=== PATIENT | male | born 1970 | race Asian ===

== ENCOUNTER 2021-04-10 09:11 | Outpatient (REF) | payer OTHER, SELFPAY | END 2021-04-10 09:12 | disposition home or self-care (01) | LOC: HO.LAB 09:11 | PROVIDERS: Visit Provider Internal Medicine | DX: Z20.822 Contact with and (suspected) exposure to COVID-19 (principal) | CPT/HCPCS: C9803; U0003; U0005 ==

== ENCOUNTER 2024-09-03 15:15 | Outpatient (AMB) | payer OTHER, SELFPAY ==
[2024-09-03 15:29] VITALS: BP 144/94; BMI 24.8
--- NOTE | 2024-09-03 15:29 | A.OFFVIS_ITS ---
Vital Signs 09/03/24 15:29 Height 5 ft 11 in Weight 178 lb BMI 24.8 BP 144/94 H Blood Pressure Location Rt brachial Position Sitting Intake Visit Reasons: ENP: MS(PER MD) Intake Note: Patient presents for new patient evaluation Allergies Sulfa (Sulfonamide Antibiotics) Allergy (Severe, Verified 09/03/24 15:31) Rash Medication List - Last Reconciled 09/03/24 by Nuria Marie MD baclofen 30 mg PO TID duloxetine 30 mg PO DAILY gabapentin 300-300-600 orally daily; ocrelizumab (Ocrevus) 600 mg IV [id number] trazodone 100 mg PO BEDTIME PRN HPI Comments Details: 54y/o male with Multiple Sclerosis , RAZA on CPAP comes for urgent reevaluation Diagnosed in 2018- [facility] center In December 2020 when he had his COVID vaccine booster- he reacted and had [facility] [place] . He was admitted and treated with IVIG. He was fine until February 2024 he started noticing difficulty with his gait and sharp shooting pains in megan thighs R>L . He also has cramps and spasms in his legs when he sleeps .The pain and abnormal cramps are worse at rest and when he is sleeping . Moving makes it better. he is still able to workout but after that he is stiff . In March 2024 - he had appointment for Botox for Migraines at [facility]. 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 MRI brain C spine and lumbar spine.He also has pain in the neck and shoulder.No MS changes. He had EMG /NCS LE twice. He was switched to ocrevus for past 1 year from [facility]. 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 Optic neuritis RAZA (obstructive sleep apnea) Neck pain Multiple sclerosis Hyperglycemia GERD (gastroesophageal reflux disease) Disorder of lumbar spine Cervical radiculopathy Surgical History H/O hernia repair Family History Mother Type 2 diabetes mellitus Father HTN (hypertension) Stroke Social History Alcohol intake: current Patient Tobacco Use Status: Current someday Tobacco user Physical Exam Vital Signs: Last Vital Signs BP 144/94 H 09/03/24 15:29 BMI result Body Mass Index 24.8 Const Orientation/consciousness: patient oriented x3 Neuro Other: Motor - power right hand 5-/5 Left hand 5/5 LE- right thigh 3-4/5 limited because of pain Left 4-5/5 Right leg extension 4/5 Left leg extension - 4/5 Gait- guarded without shoes General: patient oriented x3 Deep tendon reflexes (DTR's): Right triceps reflex intensity grade: 2+, Left triceps reflex intensity grade: 2+, Rt Biceps (C5, C6): 2+, Left biceps reflex intensity grade: 2+, Right brachioradialis reflex intensity grade: 2+, Left brachioradialis reflex intensity grade: 2+, Right patellar reflex intensity grade: 3+, Left patellar reflex intensity grade: 3+, Right ankle reflex intensity grade: 3+ and Left ankle reflex intensity grade: 3+ Coordination: [id number] test normal Results Reviewed Results Reviewed: EMG/NCS- 08/2024 normal MRI L spine 2023- multilevel lumbar spondylosis moderate megan foraminal stenosis at L5-S1 Unchanged nonenhancing T 2 hypertense lesion in the right conus medularis Assessment & Plan Assessment & Plan (1) Nocturnal leg cramps: Comment: h/o GBS post COVID vaccine in 2020 Code(s): G47.62 - Sleep related leg cramps Category: Medical (2) Restless legs syndrome (RLS): Code(s): G25.81 - Restless legs syndrome Category: Medical (3) Lumbar spondylosis: Code(s): M47.816 - Spondylosis without myelopathy or radiculopathy, lumbar region Category: Medical (4) Multiple sclerosis: Code(s): G35 - Multiple sclerosis Category: Medical (5) RAZA (obstructive sleep apnea): Code(s): G47.33 - Obstructive sleep apnea (adult) (pediatric) Category: Medical Plan EMG report from [place] I will trial him on clonazepam 0.5 mg 1-2 tabs qhs Second opinion with [facility] Dr. Suarez Decrease trazadone 50mg qhs In lab sleep study to evaluate his leg cramps F/u physical laboratory assistant for lumbar spondylosis Orders: Orders RT PSG in-lab sleep study 09/03/24 G25.81 - Restless legs syndrome, G47.33 - Obstructive sleep apnea (adult) (pediatric), G47.62 - Sleep related leg cramps Referrals Neurology Referral G35 - Multiple sclerosis Medications: New trazodone 50 mg PO BEDTIME PRN clonazepam 1-2 tabs orally daily; 60 tabs 1RF Coding Level of Care Code New Pt Level 4 (99143) Diagnoses Nocturnal leg cramps G47.62 Restless legs syndrome (RLS) G25.81 Lumbar spondylosis M47.816 Multiple sclerosis G35 RAZA (obstructive sleep apnea) G47.33
== END 2024-09-03 16:22 | disposition home or self-care (01) ==
PROVIDERS: Visit Provider Psychiatry & Neurology Neurology
DX: G47.62 Sleep related leg cramps (principal); G25.81 Restless legs syndrome; M47.816 Spondylosis without myelopathy or radiculopathy, lumbar region; G35 Multiple sclerosis; G47.33 Obstructive sleep apnea (adult) (pediatric)
CPT/HCPCS: 99204

== ENCOUNTER → 2024-09-21 19:37 | Outpatient (REF) | payer OTHER, SELFPAY | LOC: HO.SL 19:37 | PROVIDERS: Visit Provider Psychiatry & Neurology Neurology | DX: G47.33 Obstructive sleep apnea (adult) (pediatric) (principal); G25.81 Restless legs syndrome; G47.62 Sleep related leg cramps | CPT/HCPCS: 95810 ==

== ENCOUNTER → 2024-09-21 21:58 | Outpatient (BNV) | payer OTHER, SELFPAY | PROVIDERS: Visit Provider Internal Medicine | DX: G47.33 Obstructive sleep apnea (adult) (pediatric) (principal) | CPT/HCPCS: 95810 ==

== ENCOUNTER 2024-11-21 07:53 | Outpatient (AMB) | payer OTHER, SELFPAY ==
[2024-11-21 07:54] VITALS: BP 122/84; PULSE 78; O2SAT 99; BMI 25.2
--- NOTE | 2024-11-21 07:54 | A.OFFVIS_ITS ---
Vital Signs 11/21/24 07:54 Height 5 ft 11 in Weight 181 lb BMI 25.2 BP 122/84 Blood Pressure Location Rt brachial Position Sitting Pulse 78 Pulse Source Pulse Oximeter Pulse Oximetry (%) 99 Oxygen Delivery Method Room Air Intake Visit Reasons: sleep study results discussion Intake Note: Patient following up for sleep study done on 10/01/2024. Allergies Sulfa (Sulfonamide Antibiotics) Allergy (Severe, Verified 11/21/24 07:56) Rash Medication List - Last Reconciled 11/21/24 by Nuria Marie MD clonazepam 1-2 tabs orally daily; duloxetine 30 mg PO DAILY ocrelizumab (Ocrevus) 600 mg IV [id number] trazodone 50 mg PO BEDTIME PRN HPI Comments Details: 54y/o male with Multiple Sclerosis , RAZA on CPAP comes for follow up. His sleep study was c/w severe sleep apnea AHI 43/hr , 69/hr O2 ranjith 69%. Clonazepam helps his sleep. He still has his old CPAP from 2018 very uncomfortable with mask but tries to use it everyday except when travelling. He went to [place] and went to an Ayurvedic center - oil massage , herbal massages and has helped. His pain and stiffness has decreased He was seen at [facility] center and is starting on Ocrevus .He also stopped baclofen and is doing ok History from last visit- Diagnosed in 2017- [facility] In December 2020 when he had his COVID vaccine booster- he reacted and had Gullian Trona . He was admitted and treated with IVIG. He was fine until February 2024 he started noticing difficulty with his gait and sharp shooting pains in megan thighs R>L . He also has cramps and spasms in his legs when he sleeps .The pain and abnormal cramps are worse at rest and when he is sleeping . Moving makes it better. he is still able to workout but after that he is stiff . In March 2024 - he had appointment for Botox for Migraines at [facility]. 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 MRI brain C spine and lumbar spine.He also has pain in the neck and shoulder.No MS changes. He had EMG /NCS LE twice. He was switched to ocrevus for past 1 year from tecfed[place]. 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 Optic neuritis RAZA (obstructive sleep apnea) Neck pain Multiple sclerosis Hyperglycemia GERD (gastroesophageal reflux disease) Disorder of lumbar spine Cervical radiculopathy Surgical History H/O hernia repair Family History Mother Type 2 diabetes mellitus Father HTN (hypertension) Stroke Social History Alcohol intake: current Patient Tobacco Use Status: Current someday Tobacco user Physical Exam Vital Signs: Last Vital Signs Pulse 78 11/21/24 07:54 BP 122/84 11/21/24 07:54 Pulse Ox 99 11/21/24 07:54 Oxygen Delivery Method Room Air 11/21/24 07:54 BMI result Body Mass Index 25.2 Const Orientation/consciousness: patient oriented x3 Neuro Other: Motor - power right hand 5-/5 Left hand 5/5 LE- right thigh 3-4/5 limited because of pain Left 4-5/5 Right leg extension 4/5 Left leg extension - 4/5 Gait- guarded without shoes General: patient oriented x3 Deep tendon reflexes (DTR's): Right triceps reflex intensity grade: 2+, Left triceps reflex intensity grade: 2+, Rt Biceps (C5, C6): 2+, Left biceps reflex intensity grade: 2+, Right brachioradialis reflex intensity grade: 2+, Left brachioradialis reflex intensity grade: 2+, Right patellar reflex intensity grade: 3+, Left patellar reflex intensity grade: 3+, Right ankle reflex intensity grade: 3+ and Left ankle reflex intensity grade: 3+ Coordination: [id number] test normal Assessment & Plan Assessment & Plan (1) RAZA (obstructive sleep apnea): Code(s): G47.33 - Obstructive sleep apnea (adult) (pediatric) Category: Medical (2) Nocturnal leg cramps: Comment: h/o GBS post COVID vaccine in 2020 Code(s): G47.62 - Sleep related leg cramps Category: Medical (3) Restless legs syndrome (RLS): Code(s): G25.81 - Restless legs syndrome Category: Medical (4) Lumbar spondylosis: Code(s): M47.816 - Spondylosis without myelopathy or radiculopathy, lumbar region Category: Medical (5) Multiple sclerosis: Code(s): G35 - Multiple sclerosis Category: Medical Plan clonazepam 0.5 mg 1-2 tabs qhs Continue f/u with Dr. Suarez Trial trazadone 50mg qhs In lab sleep study - reevaluated F/u street cleaner for lumbar spondylosis Will consider INSPIRE Coding Level of Care Code Est Pt Level 4 (90560) Complex EM visit Add On G2211 Diagnoses RAZA (obstructive sleep apnea) G47.33 Nocturnal leg cramps G47.62 Restless legs syndrome (RLS) G25.81 Lumbar spondylosis M47.816 Multiple sclerosis G35
--- OUTSIDE RECORDS SUMMARY | 2024-11-21 07:55 | XMS_ITS | Clinical Summary ---
Author Organization [facility] Address [address] [place] [address] Phone Care Team Providers Care Log Processor Operator Name Role Phone Samina Luna MD Primary Care Provide r Allergies No known active allergies Medications gabapentin (NEURONTIN) 300 mg capsule Take 1 capsule (300 mg total) by mouth 3 (three) times a day. Active baclofen (LIORESAL) 10 mg tablet Take 3 tablets (30 mg total) by mouth 3 (three) times a day. Active traZODone (DESYREL) 100 mg tablet Take 1 tablet (100 mg total) by mouth at bedtime. Active DULoxetine (CYMBALTA) [address] capsule Take 1 capsule (30 mg total) by mouth 1 (one) time each day. Do not crush or chew. Active clonazePAM (KlonoPIN) 0.5 mg tablet Take 1-2 tablets (0.5-1 mg total) by mouth daily. 09/03/2024 Active ocrelizumab (OCREVUS IV) Infuse into a venous catheter. Active Encounters Date Type Department Care Team Description 09/21/2024 2:00 PM EST Consult [facility] for [facility] [address] [place] [phone] Maria Esther Ruby MD Multiple sclerosis (CMS/HCC) (Primary Dx); Neuropathy; Other fatigue; Chronic migraine without aura without status migrainosus, not intractable 09/18/2024 9:35 AM EST - 09/18/2024 11:59 PM EST Hospital Encounter [facility] Xray [address] [place] [phone] Pain in left hip Discharge Disposition: Home or Self Care 08/21/2024 12:51 PM EST Anesthesia Event [facility] Pain Management [address] [place] [phone] Leroy Alvarenga MD Walsh, Michael, DO 08/21/2024 10:17 AM EST - 08/21/2024 11:59 PM EST Hospital Encounter [facility] Pain Management [address] [place] [phone] Harris Foster DO Radiculopathy, cervical region Discharge Disposition: Home or Self Care 08/21/2024 7:15 AM EST - 08/21/2024 11:59 PM EST Hospital Encounter [facility] Xray [address] [place] [phone] Pain Discharge Disposition: Home or Self Care from Last 3 Months Surgical History Surgery Date Site/Laterality Comments ANTERIOR CERVICAL DISCECTOMY W/ FUSION Medical History Medical History Date Comments Sleep apnea Neuromuscular disorder ([facility]/HCC) MS (multiple sclerosis) ([facility]) Social History Tobacco Use Types Packs/Day Years Used Date Smoking Tobacco: Never Smokeless Tobacco: Never Tobacco Cessation:Counseling Given: Not Answered Alcohol Use Standard Drinks/Week Comments Not Currently 0 (1 standard drink = 0.6 oz pur e alcohol) Sex and Gender Information Value Date Recorded Sex Assigned at Male 08/19/2024 6:33 PM EST Legal Sex Male 11:12 PM EST Gender Identity Male 08/19/2024 6:33 PM EST Sexual Orientation Straight 08/21/2024 10 :15 AM EST Travel History Travel Start Travel End [place]ck[place] 10/04/2024 11/09/2024 Obstetrics History Last Filed Vital Signs Vital Sign Reading Time Taken Comments Blood Pressure 142/90 09/21/2024 2:09 PM EST Pulse 95 09/21/2024 2:09 PM EST Temperature 36.5 ??C (97.7 ??F) 09/21/2024 2:09 PM ES T Respiratory Rate 16 08/21/2024 1:27 PM EST Oxygen Saturation 97% 09/21/2024 2:09 PM EST Inhaled Oxygen Concentration - - Weight 74.8 kg (165 lb) 08/21/2024 10:44 AM EST Height 177.8 cm (5' 10 ) 08/21/2024 10:44 AM EST Body Mass Index 23.68 08/21/2024 10:44 AM EST Plan of Treatment Upcoming Encounters Date Type Department Care Team (Late st Contact Info) Description 11/21/2024 9:20 AM EST Procedure visit [facility] [address] [place] [phone] Maria Esther Ruby MD [address] [phone] 11/23/2024 8:30 AM EST Office Visit [facility] [address] [place] [address] Maria Esther Ruby MD [address] [phone] Health Maintenance Due Date Last Done Comments Hepatitis B Vaccines (1 of 3 - 19+ 3-dose series) 02/04/1988 Pneumococcal Vaccine: 50+ Years (1 of 1 - PCV) 2019 Zoster Vaccines (1 of 2) 2019 COVID-19 Vaccine (3 - season) 2024 12/01/2020, 10/30/2020 Influenza Vaccine (#1) 2024 2, 06/24/2020, 06/24/2020, Additional history exists Cholesterol Screening (Lipid Panel) 08/16/2024 Colorectal Cancer Screening: Colonoscopy 08/16/2024 Depression Screening 08/16/2024 Social Influencers of Health Screening 08/16/2024 DTaP,Tdap,and Td Vaccines (3 - Td or Tdap) 04/30/2031 04/30/2021, 05/14/2011 HIV Screening Completed 09/21/2024 Hepatitis C Screening Completed 09/21/2024, 021 HIB Vaccines Aged Out No longer eligi ble based on patient's age to complete this topic HPV Vaccines Aged Out No longer eligi ble based on patient's age to complete this topic Hepatitis A Vaccines Aged Out No long er eligible based on patient's age to complete this topic IPV Vaccines Aged Out No longer eligi ble based on patient's age to complete this topic MMR Vaccines Aged Out No longer eligi ble based on patient's age to complete this topic Meningococcal ACWY Vaccine Aged Out N o longer eligible based on patient's age to complete this topic Meningococcal B Vacine Aged Out No lo nger eligible based on patient's age to complete this topic Pneumococcal Vaccine: Pediatrics (0 to 5 Years) and At-Risk Patients (6 to 64 Years) Aged Out No longer eligible based on patient's age to complete this topic RSV Immunization Patients Under 20 months Aged Out No longer eligible based on patient's age to complete this topic Varicella Vaccines Aged Out No longer eligible based on patient's age to complete this topic Procedures Procedure Name Priority Date/Time Associated Diagnosis Comments NEUROMYELITIS OPTICA, [id number] Routine 09/22/2024 10:51 AM EST Multiple sclerosis (CMS/HCC) [place] PROTEIN ELECTROPHORETIC FRACTIONATION & QUANTITATION SERUM Routine 09/21/2024 3:54 PM EST Multiple sclerosis (CMS/HCC) Neuropathy PROTEIN, TOTAL Routine 09/21/2024 3:54 PM EST Multiple sclerosis (CMS/HCC) Neuropathy INTERFERON GAMMA INTERPRETATION Routine 09/21/2024 3:54 PM EST Multiple sclerosis (CMS/HCC) INTERFERON GAMMA ANTIGEN 2 Routine 09/21/2024 3:54 PM EST Multiple sclerosis (CMS/HCC) INTERFERON GAMMA ANTIGEN 1 Routine 09/21/2024 3:54 PM EST Multiple sclerosis (CMS/HCC) INTERFERON GAMMA MITOGEN Routine 09/21/2024 3:54 PM EST Multiple sclerosis (CMS/HCC) INTERFERON GAMMA NIL Routine 09/21/2024 3:54 PM EST Multiple sclerosis (CMS/HCC) CBC WITH AUTO DIFFERENTIAL Routine 09/21/2024 3:54 PM EST Multiple sclerosis (CMS/HCC) THYROID STIMULATING HORMONE Routine 09/21/2024 3:54 PM EST Multiple sclerosis (CMS/HCC) Neuropathy Other fatigue VITAMIN E Routine 09/21/2024 3:54 PM EST Multiple sclerosis (CMS/HCC) Neuropathy VITAMIN B6 Routine 09/21/2024 3:54 PM EST Multiple sclerosis (CMS/HCC) Neuropathy TISSUE TRANSGLUTAMINASE, IGA Routine 09/21/2024 3:54 PM EST Multiple sclerosis (CMS/HCC) Neuropathy VITAMIN B1 Routine 09/21/2024 3:54 PM EST Multiple sclerosis (CMS/HCC) Neuropathy PROTEIN ELECTROPHORESIS, SERUM Routine 09/21/2024 3:54 PM EST Multiple sclerosis (CMS/HCC) Neuropathy HEMOGLOBIN A1C Routine 09/21/2024 3:54 PM EST Multiple sclerosis (CMS/HCC) Neuropathy RHEUMATOID FACTOR Routine 09/21/2024 3:5 4 PM EST Multiple sclerosis (CMS/HCC) SJOGRENS ANTIBODIES, SSA AND SSB Routine 09/21/2024 3:54 PM EST Multiple sclerosis (CMS/HCC) BHUMIKA IFA WITH TITER AND PATTERN Routine 09/21/2024 3:54 PM EST Multiple sclerosis (CMS/HCC) VARICELLA ZOSTER ANTIBODY IGG Routine 09/21/2024 3:54 PM EST Multiple sclerosis (CMS/HCC) MYELIN OLIGODENDROCYTE GLYCOPROTEIN ANTIBODY WITH REFLEX TO TITER Routine 09/21/2024 3:54 PM EST Multiple sclerosis (CMS/HCC) INTERFERON GAMMA FOR TB, QUALITATIVE Routine 09/21/2024 3:54 PM EST Multiple sclerosis (CMS/HCC) HIV 1, 2 ANTIBODY, P24 ANTIGEN WITH REFLEX TO DIFFERENTIATION Routine 09/21/2024 3:54 PM EST Multiple sclerosis (CMS/HCC) HEPATITIS B CORE ANTIBODY IGM Routine 09/21/2024 3:54 PM EST Multiple sclerosis (CMS/HCC) HEPATITIS B SURFACE ANTIGEN WITH CONFIRMATION Routine 09/21/2024 3:54 PM EST Multiple sclerosis (CMS/HCC) HEPATITIS C ANTIBODY Routine 09/21/2024 3:54 PM EST Multiple sclerosis (CMS/HCC) BORRELIA BURGDORFERI ANTIBODY Routine 09/21/2024 3:54 PM EST Multiple sclerosis (CMS/HCC) CBC AND DIFFERENTIAL Routine 09/21/2024 3:54 PM EST Multiple sclerosis (CMS/HCC) VITAMIN D 25 HYDROXY Routine 09/21/2024 3:54 PM EST Multiple sclerosis (CMS/HCC) VITAMIN B12 Routine 09/21/2024 3:54 PM EST Multiple sclerosis (CMS/HCC) XR HIP 2-3 VIEWS LEFT Routine 09/18/2024 9:56 AM EST Pain in left hip from Last 3 Months Results * Neuromyelitis optica, [id number] (09/22/2024 10:51 AM EST) NMO IgG Autoantibodies <1.5 0.0 - 3.0 U/mL 09/24/2024 4:05 PM EST [facility] Comment: ? Negative: ?0.0 - 3.0 ? Positive: ? >3.0 Blood Venous blood specimen / Unknown Venipuncture / Unknown 09/22/2024 10:51 AM EST 09/22/2024 10:52 AM EST Narrative [facility] - 09/24/2024 4:05 PM EST Performed at: ??01 - [facility] [address] ??[id number] Furnace Hand: Chris Estrada MD, Phone: ??[phone] Maria Esther Ruby MD LAB BLOOD ORDERABLES Fin al Result [facility] * Hepatitis C antibody (09/21/2024 3:54 PM EST) Hepatitis C Antibody Negative Negative LAB CHEMISTRY METHOD 09/21/2024 8:05 PM EST [facility] Blood Venous blood specimen / Unknown Venipuncture / Unknown 09/21/2024 3:54 PM EST 09/21/2024 3:54 PM EST Maria Esther Ruby MD LAB BLOOD ORDERABLES Fin al Result Performing Organization Address City/[facility] Co de Phone Number [facility] [address] [place] [address], [place] [phone] * HIV 1,2 antibody, p24 antigen with reflex to differentiation (09/21/2024 3:54 PM EST) Pathologist [facility] HIV Combo AB/AG Negative Negative LAB CHEMISTRY METHOD 09/21/2024 8:06 PM EST [facility] Blood Venous blood specimen / Unknown Venipuncture / Unknown 09/21/2024 3:54 PM EST 09/21/2024 3:54 PM EST Narrative [facility] - 09/21/2024 8:06 PM EST This assay is a 4th generation assay allowing for earlier detection of HIV infection by detecting the presence of the HIV-1 p24 antigen as well as the traditional antibodies to HIV type 1 (including group O) and type 2. ??Use of a 4th generation assay is the current CDC recommendation for HIV screening. us Maria Esther Ruby MD LAB BLOOD ORDERABLES Fin al Result Performing Organization Address City/[facility]/ZIP Co de Phone Number [facility] [address] [place] [address], [place] [phone] * Interferon gamma interpretation (09/21/2024 3:54 PM EST) [facility] Quantiferon Plus Interpretation Negative Negative LAB CHEMISTRY METHOD 09/23/2024 10:34 AM EST [facility] Blood Venous blood specimen / Unknown Venipuncture / Unknown 09/21/2024 3:54 PM EST 09/21/2024 3:54 PM EST us Maria Esther Ruby MD LAB BLOOD ORDERABLES Fin al Result Performing Organization Address [facility] Co de Phone Number [facility] [address] [place] [address], [place] [phone] * Interferon gamma antigen 2 (09/21/2024 3:54 PM EST) Blood Venous blood specimen / Unknown Venipuncture / Unknown 09/21/2024 3:54 PM EST 09/21/2024 3:54 PM EST us Maria Esther Ruby MD LAB BLOOD ORDERABLES Fin al Result Performing Organization Address City/[facility]/ZIP Co de Phone Number [facility] [address] [place] [address], [place] [phone] * Inteferon gamma antigen 1 (09/21/2024 3:54 PM EST) Blood Venous blood specimen / Unknown Venipuncture / Unknown 09/21/2024 3:54 PM EST 09/21/2024 3:54 PM EST us Maria Esther Ruby MD LAB BLOOD ORDERABLES Fin al Result Performing Organization Address City/[facility]/ZIP Co de Phone Number [facility] [address] [place] [address], [place] [phone] * Interferon gamma mitogen (09/21/2024 3:54 PM EST) Blood Venous blood specimen / Unknown Venipuncture / Unknown 09/21/2024 3:54 PM EST 09/21/2024 3:54 PM EST us Maria Esther Ruby MD LAB BLOOD ORDERABLES Fin al Result Performing Organization Address [facility] de Phone Number [facility] [address] [place] [address], [place] [phone] * Interferon gamma NIL (09/21/2024 3:54 PM EST) Blood Venous blood specimen / Unknown Venipuncture / Unknown 09/21/2024 3:54 PM EST 09/21/2024 3:54 PM EST us Maria Esther Ruby MD LAB BLOOD ORDERABLES Fin al Result Performing Organization Address [facility] Phone Number [facility] [address] [place] [address], [place] [phone] * Hepatitis B surface antigen with reflex to confirmation (09/21/2024 3:54 PM EST) Pathologist [facility] Hepatitis B Surface Ag Negative Negative LAB CHEMISTRY METHOD 09/21/2024 7:37 PM EST [facility] Blood Venous blood specimen / Unknown Venipuncture / Unknown 09/21/2024 3:54 PM EST 09/21/2024 3:54 PM EST Narrative [facility] - 09/21/2024 7:37 PM EST Over the counter supplements containing high doses of biotin may interfere with this assay. ??If interference is suspected, patients shoud be retested after refraining from biotin supplements for 72 hours. us Maria Esther Ruby MD LAB BLOOD ORDERABLES Fin al Result Performing Organization Address [facility] de Phone Number [facility] [address] [place] [address], [place] [phone] * PATHOLOGIST REVIEW PROTEIN ELECTROPHORESIS (09/21/2024 3:54 PM EST) [facility] Pathologist Interpretation 09/25/2024 2:05 PM EST [facility] Blood Venous blood specimen / Unknown Venipuncture / Unknown 09/21/2024 3:54 PM EST 09/21/2024 3:54 PM EST Maria Esther Ruby MD LAB BLOOD ORDERABLES Fin al Result Performing Organization Address [facility]/ZIP Co de Phone Number [facility] [address] [place] [address], [place] [phone] * Myelin oligodendrocyte glycoprotein antibody with reflex to titer (09/21/2024 3:54 PM EST) [facility] MOG Antibody, Cell-based IFA Negative Negative 09/25/2024 1:05 PM EST [facility] Blood Venous blood specimen / Unknown Venipuncture / Unknown 09/21/2024 3:54 PM EST 09/21/2024 3:54 PM EST Narrative [facility] - 09/25/2024 1:05 PM EST Test(s) [id number] Antibody, Cell-based IFA was developed and its performance characteristics determined by [facility]. It has not been cleared or approved by the Food and Drug Administration. Performed at: ??01 - [facility] ??[id number] Furnace Hand: Chris Estrada MD, Phone: ??[phone] us Maria Esther Ruby MD LAB BLOOD ORDERABLES Fin al Result [facility] * Sjogrens antibodies, SSA and SSB (09/21/2024 3:54 PM EST) [facility] Sjogren's SS-A (Ro) Ab Quant 1 <20 units LAB CHEMISTRY METHOD 09/23/2024 10:42 AM EST [facility] Sjogren's SS-A (Ro) Ab Negative Negative LAB CHEMISTRY METHOD 09/23/2024 10:42 AM EST [facility] Sjogren's SS-B (La) Ab Quant 1 <20 units LAB CHEMISTRY METHOD 09/23/2024 10:42 AM EST [facility] Sjogren's SS-B (La) Ab Negative Negative LAB CHEMISTRY METHOD 09/23/2024 10:42 AM EST [facility] Blood Venous blood specimen / Unknown Venipuncture / Unknown 09/21/2024 3:54 PM EST 09/21/2024 3:54 PM EST us Maria Esther Ruby MD LAB BLOOD ORDERABLES Fin al Result [facility] [address] [place] [address], [place] [phone] * BHUMIKA IFA with titer and pattern (09/21/2024 3:54 PM EST) [facility] BHUMIKA Negative Negative 09/24/2024 1:39 PM EST [facility] Blood Venous blood specimen / Unknown Venipuncture / Unknown 09/21/2024 3:54 PM EST 09/21/2024 3:54 PM EST us Maria Esther Ruby MD LAB BLOOD ORDERABLES Fin al Result [facility] [address] [place] [address], [place] [phone] * (ABNORMAL) CBC auto differential (09/21/2024 3:54 PM EST) [facility] WBC 9.9 4.8 - 10.8 K/mcL LAB HEMETOLOGY METHOD 09/21/2024 6:37 PM [facility] RBC 5.70(H) 4.50 - 5.50 M/mcL LAB HEMETOLOGY METHOD 09/21/2024 6:37 PM [facility] Hemoglobin 16.7 13.5 - 17.5 g/dL LAB HEMETOLOGY METHOD 09/21/2024 6:37 PM [facility] Hematocrit 50.4 42.0 - 54.0 % LAB HEMETOLOGY METHOD 09/21/2024 6:37 PM [facility] MCV 88.3 79.0 - 98.0 FL LAB HEMETOLOGY METHOD 09/21/2024 6:37 PM [facility] MCH 29.2 27.0 - 32.0 pcg LAB HEMETOLOGY METHOD 09/21/2024 6:37 PM [facility] MCHC 33.1 32.0 - 37.0 g/dL LAB HEMETOLOGY METHOD 09/21/2024 6:37 PM [facility] RDW 13.2 11.0 - 15.0 % LAB HEMETOLOGY METHOD 09/21/2024 6:37 PM [facility] Platelets 265 130 - 400 K/mcL LAB HEMETOLOGY METHOD 09/21/2024 6:37 PM [facility] MPV 11.4(H) 7.0 - 11.0 FL LAB HEMETOLOGY METHOD 09/21/2024 6:37 PM [facility] NRBC 0.0 <1.0 % LAB HEMETOLOGY METHOD 09/21/2024 6:37 PM [facility] NRBC Absolute 0.00 <0.10 K/mcL LAB HEMETOLOGY METHOD 09/21/2024 6:37 PM [facility] Neutrophils Relative 48.7 % LAB HEMETOLOGY METHOD 09/21/2024 6:37 PM [facility] Lymphocytes Relative 35.1 % LAB HEMETOLOGY METHOD 09/21/2024 6:37 PM [facility] Monocytes Relative 10.3 % LAB HEMETOLOGY METHOD 09/21/2024 6:37 PM [facility] Eosinophils Relative 1.0 % LAB HEMETOLOGY METHOD 09/21/2024 6:37 PM [facility] Basophils Relative 1.8 % LAB HEMETOLOGY METHOD 09/21/2024 6:37 PM [facility] Immature Granulocytes Relative 3.1 % LAB HEMETOLOGY METHOD 09/21/2024 6:37 PM [facility] Neutrophils Absolute 4.79 1.50 - 7.00 K/mcL LAB HEMETOLOGY METHOD 09/21/2024 6:37 PM [facility] Lymphocytes Absolute 3.46 1.00 - 5.00 K/mcL LAB HEMETOLOGY METHOD 09/21/2024 6:37 PM [facility] Monocytes Absolute 1.02(H) 0.20 - 1.00 K/mcL LAB HEMETOLOGY METHOD 09/21/2024 6:37 PM [facility] Eosinophils Absolute 0.10 0.00 - 0.50 K/mcL LAB HEMETOLOGY METHOD 09/21/2024 6:37 PM [facility] Basophils Absolute 0.18 0.00 - 0.20 K/mcL LAB HEMETOLOGY METHOD 09/21/2024 6:37 PM [facility] Immature Granulocytes Absolute 0.31(H) 0.00 - 0.03 K/mcL LAB HEMETOLOGY METHOD 09/21/2024 6:37 PM [facility] Blood Venous blood specimen / Unknown Venipuncture / Unknown 09/21/2024 3:54 PM EST 09/21/2024 3:54 PM EST us Maria Esther Ruby MD LAB BLOOD ORDERABLES Fin al Result Performing Organization Address City/[facility] de Phone Number [facility] [address] [place] [address], [place] [phone] * Borrelia burgdorferi antibody (09/21/2024 3:54 PM EST) Lyme Ab Negative Negative LAB CHEMISTRY METHOD 09/22/2024 11:18 AM EST [facility] Comment: No laboratory evidence of infection with B. burgdorferi (Lyme disease). Negative results may occur in patients recently infected (<=14 days) with B. burgdorferi. ??If recent infection is suspected, repeat testing on a new sample collected in 7-14 days is recommended. Blood Venous blood specimen / Unknown Venipuncture / Unknown 09/21/2024 3:54 PM EST 09/21/2024 3:54 PM EST us Maria Esther Ruby MD LAB BLOOD ORDERABLES Fin al Result Performing Organization Address [facility] de Phone Number [facility] [address] [place] [address], [place] [phone] * Tissue transglutaminase, IgA (09/21/2024 3:54 PM EST) Tissue Transglutaminase Ab, IgA Quant 1 <4 unit/mL LAB CHEMISTRY METHOD 09/25/2024 11:50 AM EST [facility] Tissue Transglutaminase Ab, IgA Negative Negative LAB CHEMISTRY METHOD 09/25/2024 11:50 AM EST [facility] Blood Venous blood specimen / Unknown Venipuncture / Unknown 09/21/2024 3:54 PM EST 09/21/2024 3:54 PM EST us Maria Esther Ruby MD LAB BLOOD ORDERABLES Fin al Result Performing Organization Address City/[facility]/ZIP Co de Phone Number [facility] [address] [place] [address], * Hepatitis B core antibody IgM (09/21/2024 3:54 PM EST) [facility] Hep B Core IgM Negative Negative LAB CHEMISTRY METHOD 09/21/2024 8:11 PM EST [facility] Blood Venous blood specimen / Unknown Venipuncture / Unknown 09/21/2024 3:54 PM EST 09/21/2024 3:54 PM EST Narrative [facility] - 09/21/2024 8:11 PM EST Over the counter supplements containing high doses of biotin may interfere with this assay. ??If interference is suspected, patients shoud be retested after refraining from biotin supplements for 72 hours. us Maria Esther Ruby MD LAB BLOOD ORDERABLES Fin al Result Performing Organization Address City/[facility]/ZIP Co de Phone Number [facility] [address] [place] [address], [place] [phone] * Vitamin D 25 hydroxy (09/21/2024 3:54 PM EST) [facility] Vit D, 25-Hydroxy 53.4 30.0 - 80.0 ng/mL LAB CHEMISTRY METHOD 09/21/2024 7:26 PM EST [facility] Blood Venous blood specimen / Unknown Venipuncture / Unknown 09/21/2024 3:54 PM EST 09/21/2024 3:54 PM EST us Maria Esther Ruby MD LAB BLOOD ORDERABLES Fin al Result [facility] [address] [place] [address], [place] [phone] * Rheumatoid factor (09/21/2024 3:54 PM EST) [facility] Rheumatoid Factor <10.0 <15.0 I Unit/mL LAB CHEMISTRY METHOD 09/21/2024 7:17 PM EST [facility] Blood Venous blood specimen / Unknown Venipuncture / Unknown 09/21/2024 3:54 PM EST 09/21/2024 3:54 PM EST Maria Esther Ruby MD LAB BLOOD ORDERABLES Fin al Result Performing Organization Address [facility] de Phone Number [facility] [address] [place] [address], [place] [phone] * Varicella zoster antibody IgG (09/21/2024 3:54 PM EST) [facility] Varicella IgG Positive Positive LAB CHEMISTRY METHOD 09/22/2024 11:19 AM EST [facility] Varicella Zoster IgG 19.20 >=1.00 S/CO LAB CHEMISTRY METHOD 09/22/2024 11:19 AM EST [facility] Blood Venous blood specimen / Unknown Venipuncture / Unknown 09/21/2024 3:54 PM EST 09/21/2024 3:54 PM EST Narrative [facility] - 09/22/2024 11:19 AM EST Interpretation >= 1.00 S/CO is considered to be consistent with Immunity us Maria Esther Ruby MD LAB BLOOD ORDERABLES Fin al Result Performing Organization Address [facility] de Phone Number [facility] [address] [place] [address], [place] [phone] * Vitamin E (09/21/2024 3:54 PM EST) [facility] Vitamin E (Alpha Tocopherol) 1643 500 - 1800 ug/dL 09/25/2024 6:54 AM EST [facility] Comment: This test was developed and the performance characteristics determined by [facility]. It has not been cleared or approved by the FDA. The laboratory is regulated under CLIA as qualified to perform high-complexity testing. This test is used for patient testing purposes. It should not be regarded as investigational or for research. Test performed at [facility], [address] [place], [place] ??[address] ? [phone] Cora Juárez MD, PhD - Flat Grinder Operator Blood Venous blood specimen / Unknown Venipuncture / Unknown 09/21/2024 3:54 PM EST 09/21/2024 3:54 PM EST Maria Esther Ruby MD LAB BLOOD ORDERABLES Fin al Result Performing Organization Address City/[facility]/ZIP Co de Phone Number [facility] [address] [place] [address] * Thyroid stimulating hormone (09/21/2024 3:54 PM EST) Pathologist [facility] TSH 2.46 0.40 - 4.00 mcIU/mL LAB CHEMISTRY METHOD 09/21/2024 7:26 PM EST [facility] Blood Venous blood specimen / Unknown Venipuncture / Unknown 09/21/2024 3:54 PM EST 09/21/2024 3:54 PM EST us Maria Esther Ruby MD LAB BLOOD ORDERABLES Fin al Result Performing Organization Address City/[facility]/ZIP Co de Phone Number [facility] [address] [place] [address], [place] [phone] * Vitamin B1 (09/21/2024 3:54 PM EST) Vitamin B1 Whole Blood 72 38 - 122 ug/L 09/27/2024 9:30 AM EST [facility] Comment: This test was developed and the performance characteristics determined by [facility]. It has not been cleared or approved by the FDA. The laboratory is regulated under CLIA as qualified to perform high-complexity testing. This test is used for patient testing purposes. It should not be regarded as investigational or for research. Test performed at [facility], [address], [place] ??[address] ? [phone] Cora Juárez MD, PhD - Flat Grinder Operator Blood Venous blood specimen / Unknown Venipuncture / Unknown 09/21/2024 3:54 PM EST 09/21/2024 3:54 PM EST Maria Esther Ruby MD LAB BLOOD ORDERABLES Fin al Result Performing Organization Address City/[facility]/ZIP Co de Phone Number [facility] [address] [place] [address] * Vitamin B6 (09/21/2024 3:54 PM EST) Pathologist [facility] Vitamin B6 (Pyridoxine) Level 20 5 - 50 ug/L 09/25/2024 10:13 AM EST [facility] Comment: This test was developed and the performance characteristics determined by [facility]. It has not been cleared or approved by the FDA. The laboratory is regulated under CLIA as qualified to perform high-complexity testing. This test is used for patient testing purposes. It should not be regarded as investigational or for research. Test performed at [facility], [address], [place] ??[address] ? [phone] Cora Juárez MD, PhD - Flat Grinder Operator Blood Venous blood specimen / Unknown Venipuncture / Unknown 09/21/2024 3:54 PM EST 09/21/2024 3:54 PM EST Maria Esther Ruby MD LAB BLOOD ORDERABLES Fin al Result Performing Organization Address City/[facility]/ZIP Co de Phone Number [facility] [address] [place] [address] * Protein electrophoresis, serum (09/21/2024 3:54 PM EST) Pathologist [facility] Total Protein 7.3 6.0 - 8.0 g/dL LAB CHEMISTRY METHOD 09/25/2024 2:05 PM EST [facility] Albumin, Serum 4.0 2.9 - 4.1 g/dL LAB CHEMISTRY METHOD 09/25/2024 2:05 PM [facility] Alpha 1 Globulin (g/dL) 0.2 0.1 - 0.5 g/dL LAB CHEMISTRY METHOD 09/25/2024 2:05 PM [facility] Alpha 2 Globulin (g/dL) 1.0 0.7 - 1.5 g/dL LAB CHEMISTRY METHOD 09/25/2024 2:05 PM [facility] Beta (g/dL) 1.2 0.7 - 1.5 g/dL LAB CHEMISTRY METHOD 09/25/2024 2:05 PM [facility] Gamma Globulin (g/dL) 0.9 0.7 - 1.9 g/dL LAB CHEMISTRY METHOD 09/25/2024 2:05 PM [facility] SPEP Interpretation Essentially normal pattern. No M-Gigi seen. LAB CHEMISTRY METHOD 09/25/2024 2:05 PM [facility] Blood Venous blood specimen / Unknown Venipuncture / Unknown 09/21/2024 3:54 PM EST 09/21/2024 3:54 PM EST us Maria Esther Ruby MD LAB BLOOD ORDERABLES Fin al Result [facility] [address] [place] [address], * Protein, total (09/21/2024 3:54 PM EST) Total Protein 7.3 6.0 - 8.0 g/dL LAB CHEMISTRY METHOD 09/21/2024 7:13 PM [facility] Blood Venous blood specimen / Unknown Venipuncture / Unknown 09/21/2024 3:54 PM EST 09/21/2024 3:54 PM EST us Maria Esther Ruby MD LAB BLOOD ORDERABLES Fin al Result Performing Organization Address [facility] Co de Phone Number [facility] [address] [place] [address], [place] [phone] * Hemoglobin A1c (09/21/2024 3:54 PM EST) [facility] Hemoglobin A1C 5.7 <6.5 % LAB CHEMISTRY METHOD 09/21/2024 9:10 PM EST [facility] Mean Bld Glu Estim. 117 mg/dL LAB CHEMISTRY METHOD 09/21/2024 9:10 PM EST [facility] Blood Venous blood specimen / Unknown Venipuncture / Unknown 09/21/2024 3:54 PM EST 09/21/2024 3:54 PM EST us Maria Esther Ruby MD LAB BLOOD ORDERABLES Fin al Result Performing Organization Address [facility] de Phone Number [facility] [address] [place] [address], [place] [phone] * Vitamin B12 (09/21/2024 3:54 PM EST) [facility] Vitamin B-12 563 250 - 900 pcg/mL LAB CHEMISTRY METHOD 09/21/2024 7:40 PM EST [facility] Blood Venous blood specimen / Unknown Venipuncture / Unknown 09/21/2024 3:54 PM EST 09/21/2024 3:54 PM EST Maria Esther Ruby MD LAB BLOOD ORDERABLES Fin al Result Performing Organization Address [facility] Co de Phone Number [facility] [address] [place] [address], [place] [phone] * XR Hip 2-3 Views Left (09/18/2024 9:56 AM EST) Anatomical Region Laterality Modality Lower Extremities, Hip Left Radiograp hic Imaging 09/18/2024 10:0 2 AM EST Impressions 09/18/2024 10:04 AM EST No etiology for left hip pain demonstrated. The left side of the sacrum is partially obscured. -------- FINAL REPORT -------- Dictated By: Robert Tsang Dictated Date: 09/18/2024 10:02 ET Assigned Physician: Robert Tsang Reviewed and Electronically Signed By: Robert Tsang Signed Date: 09/18/2024 10:04 ET Workstation ID: [id number] Transcribed By: Self Edit Transcribed Date: 09/18/2024 10:02 ET Narrative 09/18/2024 10:04 AM EST EXAMINATION: PELVIS LEFT HIP CLINICAL INFORMATION: Pain in both hips greater on left. Pain and numbness COMPARISON: None. TECHNIQUE: Frontal view of the pelvis. 2 views left hip FINDINGS: Pelvis: The upper two thirds of the left SI joint are not well evaluated. The hips and symphysis appear normal alignment. I suspect some degenerative change involving the facets at the lumbosacral junction. The sacrum is partially obscured. Left hip: No fracture or subluxation. The femoral head contour is smooth. The joint spaces preserved. No significant osteophytes. No evidence of periarticular mass or collection. Procedure Note Robert Tsang MD - 09/18/2024 EXAMINATION: PELVIS LEFT HIP CLINICAL INFORMATION: Pain in both hips greater on left. Pain and numbness COMPARISON: None. TECHNIQUE: Frontal view of the pelvis. 2 views left hip FINDINGS: Pelvis: The upper two thirds of the left SI joint are not well evaluated. The hipsand symphysis appear normal alignment. I suspect some degenerative change involving the facets at the lumbosacraljunction. The sacrum is partially obscured. Left hip: No fracture or subluxation. The femoral head contour is smooth. The jointspaces preserved. No significant osteophytes. No evidence of periarticular mass or collection. IMPRESSION: No etiology for left hip pain demonstrated. The left side of the sacrum is partially obscured. -------- FINAL REPORT -------- Dictated By: Robert Tsang Dictated Date: 09/18/2024 10:02 ET Assigned Physician: Robert Tsang Reviewed and Electronically Signed By: Robert Tsang Signed Date: 09/18/2024 10:04 ET Workstation ID: [id number] Transcribed By: Self Edit Transcribed Date: 09/18/2024 10:02 ET Harris Foster DO IMG XR PROCEDURES Final Result from Last 3 Months Insurance [facility] Care Teams Log Processor Operator Relationship Specialty Start Date End Date Samina Luna MD [address] [place], [place] [address]ORACIO PCP - General Internal Medicine 12/20/17
== END 2024-11-21 08:24 | disposition home or self-care (01) ==
PROVIDERS: Visit Provider Psychiatry & Neurology Neurology
DX: G47.33 Obstructive sleep apnea (adult) (pediatric) (principal); G47.62 Sleep related leg cramps; G25.81 Restless legs syndrome; M47.816 Spondylosis without myelopathy or radiculopathy, lumbar region; G35 Multiple sclerosis
CPT/HCPCS: 99214

== ENCOUNTER → 2024-11-21 07:53 | Outpatient (BNVA) | payer OTHER, SELFPAY | PROVIDERS: Visit Provider Psychiatry & Neurology Neurology ==

== ENCOUNTER 2025-07-03 07:38 | Outpatient (AMB) | payer OTHER, SELFPAY ==
--- OUTSIDE RECORDS SUMMARY | 2009-10-20 01:00 | XMS_ITS | Encounter Summary ---
Author Organization [facility] Address [address] [place] [address] Phone Care Team Providers Care Machinist Bench Name Role Phone Unavailable Primary Care Provider Unavailabl e Reason for Visit * MRI/CAT Scan - Closed Specialty Diagnoses / Procedures Referred By Contac t Referred To Contact Procedures MRI Brain Outside (No Interpretation) Chace Henning MD [address] [place] [phone] Phone: tel: fax: mailto:[email or web address] Referral ID Status Reason Start Date Expiration Date Visits Re quested Visits Authorized [id number] Closed 01/31/2018 01/31/2019 1 1 Encounter Details Date Type Department Care Team (Late st Contact Info) Description 10/20/2009 Hospital Encounter [facility] [address] [place] [address] Chace Henning MD [address] [place] [phone] [email or web address] Social History Tobacco Use Types Packs/Day Years Used Date Smoking Tobacco: Some Days Cigarettes Smokeless Tobacco: Current Child or Family Care Answer Date Record ed Do you have problems with on e of the following making it difficult for you to work, study, or receive health care? No 09/03/2024 Education Answer Date Recorded Are you interested in help w ith more adult education (for example, completing high school, GED, job training, learning the Qatari language, technical skills, or developing parenting skills)? No 09/03/2024 Are you concerned about learning? Not on file 09/03/2024 No 09/03/2024 Yes 09/03/2024 Food Answer Date Recorded Within the past 6 months we worried whether our food would run out before we got money to buy more. Never True 09/03/2024 Within the past 6 months the food we bought just didn't last and we didn't have enough money to get more. Never True Residential Stability Answer Date Recor ded What is your housing situation today? I have pankaj sing 09/03/2024 How many times have you move d in the past 12 months? Zero (I did not move) 09/03/2024 Paying for Meds Answer Date Recorded Do you have trouble paying for medicines? No 09/03/2024 Paying Utility Bills Answer Date Record ed Do you have trouble paying your heating or elect ricity bill? No 09/03/2024 Transportation Answer Date Recorded Has the lack of transportati on kept you from medical appointments or from getting medications? No 09/03/2024 Digital Access Answer Date Recorded No 09/03/2024 Yes 09/03/2024 Do you have reliable internet access at home? Ye s 09/03/2024 Do you have a device (e.g., phone, tablet, computer) with a working camera? Yes 09/03/2024 Intimate Partner Violence Answer Date R ecorded Are you denied basic needs s uch as food, clothing, or medical care? Deferred 06/10/2023 In the past 12 months have y ou been in a relationship with a person who hurts, threatens, or tries to control you? Deferred 06/10/2023 Are you denied basic needs s uch as food, clothing, or medical care? Deferred 06/10/2023 In the past 12 months have y ou been in a relationship with a person who hurts, threatens, or tries to control you? Deferred 06/10/2023 Sex and Gender Information Value Date Recorded Sex Assigned at Male 12/20/2019 11:03 PM EDT Legal Sex Male 9:37 PM EDT Gender Identity Male 12/20/2019 11:03 PM EDT Sexual Orientation Straight 12/20/2019 11 :03 PM EDT documented as of this encounter Functional Status * Calculated C-SSRS Risk Score (Lifetime/Recent) Answer Date of Assessment Author No Risk Indicated 12/16/2020 8:07 PM EDT Ashley Dixon, GENNARO * [place] Suicide Severity Rating Scale (Screener/Recent Self-Report) Question Answer Date of Assessment Author 1. Wish to be (Past 1 Month) No 021 8:07 PM EDT Ashley Dixon, GENNARO 2. Non-Specific Active Suici ari Thoughts (Past 1 Month) No 12/16/2020 8:07 PM EDT Luann Dixon, GENNARO 6. Suicidal Behavior (Lifetime) No 8:07 PM EDT Ashley Dixon, GENNARO documented as of this encounter Plan of Treatment Upcoming Encounters Date Type Department Care Team (Late st Contact Info) Description 07/22/2025 10:30 AM EDT Infusion [address] [place] [address] Chace Henning MD [address] [place] [phone] [email or web address] 09/03/2025 12:30 PM EST Office Visit Division of Immunologic, Inflammatory, and Infectious Neurological Disorders [address] [place] [address], 7th Floor, [address] [place] [address] Chace Henning MD [address] [place] [phone] [email or web address] documented as of this encounter Procedures Procedure Name Priority Date/Time Associated Diagnosis Comments MRI BRAIN OUTSIDE (NO INTERPRETATION) Routine 10/20/2009 12:00 AM EST documented in this encounter Results * MRI Brain Outside (No Interpretation) (10/20/2009 12:00 AM EST) Narrative [facility] IMG INTERFACES - 01/31/2018 3:06 PM EDT This study is for PACS storage only and not for interpretation. us Chace Henning MD IMG OUTSIDE IMAGING W/OUT IN TERPRETATION Final Result [facility] IMG INTERFACES documented in this encounter Visit Diagnoses Not on filedocumented in this encounter Additional Source Comments The information contained in this document represents components of the legal health record. It is not the complete legal health record.[facility]
--- OUTSIDE RECORDS SUMMARY | 2009-10-21 01:00 | XMS_ITS | Encounter Summary ---
Author Organization [facility] Address [address] [place] [address] Phone Care Team Providers Care Medical Review Coordinator Name Role Phone Unavailable Primary Care Provider Unavailabl e Encounter Details Date Type Department Care Team (Late st Contact Info) Description 10/21/2009 Hospital Encounter [facility] [address] [place] [address] Chace Henning MD [address] [phone] [email or web address] Social History Tobacco Use Types Packs/Day Years [...] high school, GED, job training, learning the [place] language, technical skills, or developing parenting skills)? [...] your housing situation today? I have pankaj patel 09/03/2024 How many times have you move [...] Risk Indicated 12/16/2020 8:07 PM EDT Ashley Dixon RN * [place] Suicide Severity Rating Scale (Screener/Recent Self-Report) Question Answer Date of Assessment Author 1. Wish to be (Past 1 Month) No 021 8:07 PM EDT Ashley Dixon, GENNARO 2. Non-Specific Active Suici ari Thoughts (Past 1 Month) No 12/16/2020 8:07 PM EDT Luann Dixon, GENNARO 6. Suicidal Behavior (Lifetime) No 8:07 PM EDT Ashley Dixon, RN documented as of this encounter Plan of Treatment Upcoming Encounters Date Type Department Care Team ([facility] st Contact Info) Description 07/22/2025 10:30 AM EDT Infusion [address] [place] [address] Chace Henning MD [address] [place] [phone] [email or web address] 09/03/2025 12:30 PM EST Office Visit Division of Immunologic, Inflammatory, and Infectious Neurological Disorders [address] [place] [address], 7th Floor, [address] [place] [address] Chace Henning MD [address] [place] [phone] [email or web address] documented as of this encounter Procedures Procedure Name Priority Date/Time Associated Diagnosis Comments US ABDOMEN OUTSIDE (NO INTERPRETATION) Routine 10/21/2009 12:00 AM EST documented in this encounter Results * US Abdomen Outside (No Interpretation) (10/21/2009 12:00 AM EST) Narrative [facility] IMG INTERFACES - 01/31/2018 3:05 PM EDT This study is for PACS storage only and not for interpretation. us Chace Henning MD IMG OUTSIDE IMAGING W/OUT IN TERPRETATION Final Result [facility] IMG INTERFACES documented in this encounter Visit Diagnoses Not on filedocumented in this encounter Additional Source Comments The information contained in this document represents components of the legal health record. It is not the complete legal health record.[facility]
--- OUTSIDE RECORDS SUMMARY | 2011-07-30 | XMS_ITS | Encounter Summary ---
Author Organization [facility] Address [address] [place] [address] Phone Care Team Providers Care Director Facilities Maintenance Name Role Phone Unavailable Primary Care Provider Unavailabl e Reason for Visit * MRI/CAT Scan - Closed Specialty Diagnoses / Procedures Referred By Contac t Referred To Contact Procedures MRI Spine (Neuro) Outside (No Interpretation) Chace Henning MD [address] [place] [phone] Phone: tel: fax: mailto:[email or web address] Referral ID Status Reason Start Date Expiration Date Visits Re quested Visits Authorized [id number] Closed 01/31/2018 01/31/2019 1 1 Encounter Details Date Type Department Care Team ([facility] st Contact Info) Description 07/30/2011 Hospital Encounter [facility] [address] [place] [address] Chace Henning MD [address] [place] [phone] [email or web address] Social History Tobacco Use Types Packs/Day Years [...] high school, GED, job training, learning the [place]ym[place] language, technical skills, or developing parenting skills)? [...] 8:07 PM EDT Ashley Dixon, GENNARO * [place] Suicide Severity Rating Scale (Screener/Recent Self-Report) Question [...] Info) Description 07/22/2025 10:30 AM EDT Infusion [address] [place] [address] Chace Henning MD [address] [place] [phone] [email or web address] 09/03/2025 12:30 PM EST Office Visit Division of Immunologic, Inflammatory, and Infectious Neurological Disorders [address] [place] [address], 7th Floor, [address] [place] [address] Chace Henning MD [address] [place] [phone] [email or web address] documented as of this encounter Procedures Procedure Name Priority Date/Time Associated Diagnosis Comments MRI SPINE NEUROLOGIC FOCUS OUTSIDE (NO INTERPRETATION) Routine 07/30/2011 12:00 AM EDT documented in this encounter Results * MRI Spine (Neuro) Outside (No Interpretation) (07/30/2011 12:00 AM EDT) Narrative [facility] [place]G INTERFACES - 01/31/2018 3:08 PM EDT This study is for PACS storage only and not for interpretation. us Chace Henning MD IMG OUTSIDE IMAGING W/OUT IN TERPRETATION Final Result [facility] documented in this encounter Visit Diagnoses Not on filedocumented in this encounter Additional Source Comments The information contained in this document represents components of the legal health record. It is not the complete legal health record.[facility]
--- OUTSIDE RECORDS SUMMARY | 2011-12-30 | XMS_ITS | Encounter Summary ---
Author Organization [facility] Address [address] [place] [address] Phone Care Team Providers Care Alley Cleaner Name Role Phone Unavailable Primary Care Provider Unavailabl e Encounter Details Date Type Department Care Team (Late st Contact Info) Description 12/30/2011 Hospital Encounter [facility] [address] [place] [address] Chace Henning MD [address] [phone] [email or web address] Social History Tobacco Use Types Packs/Day Years [...] high school, GED, job training, learning the Armenian language, technical skills, or developing parenting skills)? [...] 8:07 PM EDT Ashley Dixon RN * [place] Suicide Severity Rating Scale (Screener/Recent Self-Report) Question [...] Upcoming Encounters Date Type Department Care Team ([facility] st Contact Info) Description 07/22/2025 10:30 AM EDT Infusion [address] [place] [address] Chace Henning MD [address] [place] [phone] [email or web address] 09/03/2025 12:30 PM EST Office Visit Division of Immunologic, Inflammatory, and Infectious Neurological Disorders [address] [place] [address], 7th Floor, [address] [place] [address] Chace Henning MD [address] [place] [phone] [email or web address] documented as of this encounter Procedures Procedure Name Priority Date/Time Associated Diagnosis Comments XR SPINE OUTSIDE (NO INTERPRETATION) Routine 12/30/2011 12:00 AM EDT documented in this encounter Results * XR SPINE OUTSIDE(NO INTERPRETATION) (12/30/2011 12:00 AM EDT) Narrative [facility] IMG INTERFACES - 01/31/2018 3:10 PM EDT This study is for PACS storage only and not for interpretation. us Chace Henning MD IMG OUTSIDE IMAGING W/OUT IN TERPRETATION Final Result [facility] IMG INTERFACES documented in this encounter Visit Diagnoses Not on filedocumented in this encounter Additional Source Comments The information contained in this document represents components of the legal health record. It is not the complete legal health record.[facility]
--- OUTSIDE RECORDS SUMMARY | 2017-07-06 | XMS_ITS | Encounter Summary ---
Author Organization [facility] Address [address] [place] [address] Phone Care Team Providers Care Vat Cleaner Name Role Phone Unavailable Primary Care Provider Unavailabl e Reason for Visit * MRI/CAT Scan - Closed Specialty Diagnoses / Procedures Referred By Contac t Referred To Contact Procedures MRI Spine (Neuro) Outside (No Interpretation) Chace Henning MD [address] [place] [phone] Phone: tel: fax: mailto:[email or web address] Referral ID Status Reason Start Date Expiration Date Visits Re quested Visits Authorized [id number] Closed 01/31/2018 01/31/2019 1 1 Encounter Details Date Type Department Care Team ([facility] st Contact Info) Description 07/06/2017 Hospital Encounter [facility] [address] [place] [address] Chace Henning MD [address] [place] [phone] [email or web address] Social History Tobacco Use Types Packs/Day [...] high school, GED, job training, learning the [place] Citizen language, technical skills, or developing parenting skills)? [...] 8:07 PM EDT Ashley Dixon, GENNARO * [place] Suicide Severity Rating Scale (Screener/Recent Self-Report) Question [...] Info) Description 07/22/2025 10:30 AM EDT Infusion [address] [place] [address] Chace Henning MD [address] [place] [phone] [email or web address] 09/03/2025 12:30 PM EST Office Visit Division of Immunologic, Inflammatory, and Infectious Neurological Disorders [address] [place] [address], 7th Floor, [address] [place] [address] Chace Henning MD [address] [place] [phone] [email or web address] documented as of this encounter Procedures Procedure Name Priority Date/Time Associated Diagnosis Comments MRI SPINE NEUROLOGIC FOCUS OUTSIDE (NO INTERPRETATION) Routine 07/06/2017 12:00 AM EDT documented in this encounter Results * MRI Spine (Neuro) Outside (No Interpretation) (07/06/2017 12:00 AM EDT) Narrative [facility] IMG INTERFACES - 01/31/2018 3:16 PM EDT This study is for PACS storage only and not for interpretation. us Chace Henning MD IMG OUTSIDE IMAGING W/OUT IN TERPRETATION Final Result [facility] IMG INTERFACES documented in this encounter Visit Diagnoses Not on filedocumented in this encounter Additional Source Comments The information contained in this document represents components of the legal health record. It is not the complete legal health record.[facility]
--- NOTE | 2025-07-03 07:39 | A.OFFVIS_ITS ---
Vital Signs 07/03/25 07:40 Height 5 ft 11 in Weight 179 lb BMI 25.0 BP 128/80 Blood Pressure Location Rt brachial Position Sitting Pulse 74 Pulse Source Pulse Oximeter Pulse Oximetry (%) 97 Oxygen Delivery Method Room Air Intake Visit Reasons: 3mon follow-up Intake Note: Patient presents for follow op sleep apnea, Spondylosis without myelopathy or radiculopathy, lumbar region, RLS and MS Mine Superintendent Required: No Accompanied by: Self / Same As Patient Allergies Sulfa (Sulfonamide Antibiotics) Allergy (Severe, Verified 07/03/25 07:40) Rash HPI Comments Details: 55y/o male with Multiple Sclerosis diagnosed in 2018 when he presented with gait difficulty, right sided weakness which was initially thought to be due to spondylosis - but he was diagnsoed with MS after imaging . He was seen MS specialist at [facility] , started with Tecfedira He had Optic Neuritis (R) in 2008 , in 2010 he had cervical fusion C5,6,7 and still has persistent sensory symptoms. 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 He also developed chronic migraines treated with His sleep study was c/w severe sleep apnea AHI 43/hr , 69/hr O2 ranjith 69%.he had DISE procedure last week - by - waiting for f/u for inspire. He was in [place] for 2 mths March and could not use new CPAP. He has another CPAP in [place] that he uses. Clonazepam helps his sleep. He still has his old CPAP from 2018 very uncomfortable with mask but tries to use it everyday except when travelling. He went to [place] and went to an Ayurvedic center - oil massage , herbal massages and has helped. His pain and stiffness has decreased He was seen at [facility] MS center and is starting on Ocrevus .He also stopped baclofen and is doing ok History from last visit- Diagn[facility] in 2018- [facility] [place] [facility] In December 2020 when he had his COVID vaccine booster- he reacted and had Gullian [place] . He was admitted and treated with IVIG. He was fine until February 2024 he started noticing difficulty with his gait and sharp shooting pains in megan thighs R>L . He also has cramps and spasms in his legs when he sleeps .The pain and abnormal cramps are worse at rest and when he is sleeping . Moving makes it better. he is still able to workout but after that he is stiff . In March 2024 - he had appointment for Botox for Migraines at [facility]. 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 MRI brain C spine and lumbar spine.He also has pain in the neck and shoulder.No MS changes. He had EMG /NCS LE twice. He was switched to ocrevus for past 1 year from tecfedira. 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 Optic neuritis RAZA (obstructive sleep apnea) Neck pain Multiple sclerosis Hyperglycemia GERD (gastroesophageal reflux disease) Disorder of lumbar spine Cervical radiculopathy Surgical History H/O hernia repair Family History Mother Type 2 diabetes mellitus Father HTN (hypertension) Stroke Social History Alcohol intake: current Patient Tobacco Use Status: Current someday Tobacco user Physical Exam Vital Signs: Last Vital Signs Pulse 74 07/03/25 07:40 BP 128/80 07/03/25 07:40 Pulse Ox 97 07/03/25 07:40 Oxygen Delivery Method Room Air 07/03/25 07:40 BMI result Body Mass Index 25.0 Const Orientation/consciousness: patient oriented x3 Neuro Other: Motor - power right hand 5-/5 Left hand 5/5 LE- right thigh 3-4/5 limited because of pain Left 4-5/5 Right leg extension 4/5 Left leg extension - 4/5 Gait- guarded without shoes General: patient oriented x3 Deep tendon reflexes (DTR's): Right triceps reflex intensity grade: 2+, Left triceps reflex intensity grade: 2+, Rt Biceps (C5, C6): 2+, Left biceps reflex intensity grade: 2+, Right brachioradialis reflex intensity grade: 2+, Left brachioradialis reflex intensity grade: 2+, Right patellar reflex intensity grade: 3+, Left patellar reflex intensity grade: 3+, Right ankle reflex intensity grade: 3+ and Left ankle reflex intensity grade: 3+ Coordination: xcnlov-oc-xudu test normal Assessment & Plan Assessment & Plan (1) RAZA (obstructive sleep apnea): Code(s): G47.33 - Obstructive sleep apnea (adult) (pediatric) Category: Medical (2) Nocturnal leg cramps: Comment: h/o GBS post COVID vaccine in 2020 Code(s): G47.62 - Sleep related leg cramps Category: Medical (3) Restless legs syndrome (RLS): Code(s): G25.81 - Restless legs syndrome Category: Medical (4) Lumbar spondylosis: Code(s): M47.816 - Spondylosis without myelopathy or radiculopathy, lumbar region Category: Medical (5) Multiple sclerosis: Code(s): G35 - Multiple sclerosis Category: Medical Plan clonazepam 0.5 mg 1-2 tabs qhs Continue f/u with Dr. Suarez Trial trazadone 50mg qhs F/U /Fawad - about INSPIRE F/u gre tutor for lumbar spondylosis Medications: Refilled clonazepam 1-2 tabs orally daily; 60 tabs 1RF Coding Level of Care Code Est Pt Level 4 (10332) Complex EM visit Add On G2211 Diagnoses RAZA (obstructive sleep apnea) G47.33 Nocturnal leg cramps G47.62 Restless legs syndrome (RLS) G25.81 Lumbar spondylosis M47.816 Multiple sclerosis G35
[2025-07-03 07:40] VITALS: BP 128/80; PULSE 74; O2SAT 97; BMI 25.0
--- OUTSIDE RECORDS SUMMARY | 2025-07-03 07:41 | XMS_ITS | Encounter Summary ---
Author Organization [facility] Address [address] [facility] [address] [place] [address] Phone Care Team Providers Care Scrap Collector Name Role Phone Samina Luna MD Primary Care Provide r Encounter Details Date Type Department Care Team (Late st Contact Info) Description 06/23/2021 Procedure Pass MRI, [facility] - [address], [address] [place] [address] Social History Tobacco Use Types Packs/Day Years Used Date Smoking Tobacco: Former Smokeless Tobacco: Never Sex and Gender Information Value Date Recorded Sex Assigned at Male 12/20/2019 11:03 PM EDT Legal Sex Male 9:37 PM EDT Gender Identity Male 12/20/2019 11:03 PM EDT Sexual Orientation Straight 12/20/2019 11 :03 PM EDT documented as of this encounter Plan of Treatment Upcoming Encounters Date Type Department Care Team (Late st Contact Info) Description 07/22/2025 10:30 AM EDT Infusion [address] [place] [address] Chace Henning MD [address] [phone] [email or web address] 09/03/2025 12:30 PM EST Office Visit Division of Immunologic, Inflammatory, and Infectious Neurological Disorders [address] [facility], 7th Floor, [address] [place] [address] Chace Henning MD 55 [facility] [address] [place] [phone] [email or web address] documented as of this encounter Visit Diagnoses Not on filedocumented in this encounter Care Teams Scrap Collector Relationship Specialty Start Date End Date Samina Luna MD [address] [place] [address] PCP - General Internal Medicine 01/09/18 documented as of this encounter Additional Source Comments The information contained in this document represents components of the legal health record. It is not the complete legal health record.[facility]
--- OUTSIDE RECORDS SUMMARY | 2025-07-03 07:41 | XMS_ITS | Encounter Summary ---
Author Organization [facility] Address [address] [facility] [address] [place] [address] Phone Care Team Providers Care Reconciliation Coordinator Name Role Phone Samina Luna MD Primary Care Provide r Encounter Details Date Type Department Care Team (Late st Contact Info) Description 01/31/2018 Procedure Pass [facility] [address] [place] [address] Social History Tobacco Use Types Packs/Day Years Used Date Smoking Tobacco: Some Days Cigarettes Smokeless Tobacco: Current Sex and Gender Information Value Date Recorded Sex Assigned at Male 12/20/2019 11:03 PM EDT Legal Sex Male 9:37 PM EDT Gender Identity Male 12/20/2019 11:03 PM EDT Sexual Orientation Straight 12/20/2019 11 :03 PM EDT documented as of this encounter Plan of Treatment Upcoming Encounters Date Type Department Care Team (Late st Contact Info) Description 07/22/2025 10:30 AM EDT Infusion [address] [place] [address] Chace Henning MD 55 [facility] [address] [place] [phone] [email or web address] 09/03/2025 12:30 PM EST Office Visit Division of Immunologic, Inflammatory, and Infectious Neurological Disorders [address] [facility], 7th Floor, [address] [place] [address] Chace Henning MD [address] [place] [address] [address] [place] [address] [email or web address] documented as of this encounter Visit Diagnoses Not on filedocumented in this encounter Care Teams Reconciliation Coordinator Relationship Specialty Start Date End Date Samina Luna MD [address] [place] [id number] PCP - General Internal Medicine 01/09/18 documented as of this encounter Additional Source Comments The information contained in this document represents components of the legal health record. It is not the complete legal health record.[facility]
--- OUTSIDE RECORDS SUMMARY | 2025-07-03 07:41 | XMS_ITS | Encounter Summary ---
Author Organization [facility] Address [address] [facility] [address] [place] [address] Phone Care Team Providers Care Fundraising Consultant Name Role Phone Samina Luna MD Primary Care Provide r Encounter Details Date Type Department Care Team (Late st Contact Info) Description 01/31/2018 Procedure Pass [facility] [address] [place] [address] Social History Tobacco Use Types Packs/Day Years [...] Description 07/22/2025 10:30 AM EDT Infusion [address] [place] [address] Chace Henning MD 55 [facility] [address] [place] [phone] [email or web address] 09/03/2025 12:30 PM EST Office Visit Division of Immunologic, Inflammatory, and Infectious Neurological Disorders [address] [facility], 7th Floor, [address] [place] [address] Chace Henning MD [address] [place] [address] [address] [place] [phone] [email or web address] documented as of this encounter Visit Diagnoses Not on filedocumented in this encounter Care Teams Fundraising Consultant Relationship Specialty Start Date End Date Samina Luna MD [address] [place] [address] PCP - General Internal Medicine 01/09/18 documented as of this encounter Additional Source Comments The information contained in this document represents components of the legal health record. It is not the complete legal health record.[facility]
--- OUTSIDE RECORDS SUMMARY | 2025-07-03 07:41 | XMS_ITS | Encounter Summary ---
Author Organization [facility] Address [address] [facility] [address] [place] [address] Phone Care Team Providers Care Drafter Automotive Design Name Role Phone Samina Luna MD Primary Care Provide r Encounter Details Date Type Department Care Team (Late st Contact Info) Description 01/31/2018 Procedure Pass [facility] 55 [place] [address] Social History Tobacco Use Types Packs/Day Years [...] Info) Description 07/22/2025 10:30 AM EDT Infusion [address] [place] [address] Chace Henning MD 55 [facility] [address] [place] [phone] [email or web address] 09/03/2025 12:30 PM EST Office Visit Division of Immunologic, Inflammatory, and Infectious Neurological Disorders 55 [facility], 7th Floor, [address] [place] [address] Chace Henning MD [address] [place] [address] [address] [place] [phone] [email or web address] documented as of this encounter Visit Diagnoses Not on filedocumented in this encounter Care Teams Drafter Automotive Design Relationship Specialty Start Date End Date Samina Luna MD [address] [place] [address] PCP - General Internal Medicine 01/09/18 documented as of this encounter Additional Source Comments The information contained in this document represents components of the legal health record. It is not the complete legal health record.[facility]
--- OUTSIDE RECORDS SUMMARY | 2025-07-03 07:42 | XMS_ITS | Encounter Summary ---
Author Organization [facility] Address [address] [facility] [address] [place] [address] Phone Care Team Providers Care Buffer Copper Name Role Phone Samina Luna MD Primary Care Provide r Encounter Details Date Type Department Care Team (Late st Contact Info) Description 01/31/2018 Procedure Pass [facility] 55 [place] [address] Social History Tobacco Use Types Packs/Day Years [...] Info) Description 07/22/2025 10:30 AM EDT Infusion [address] [place] [address] Chace Henning MD 55 [facility] [address] [place] [phone] [email or web address] 09/03/2025 12:30 PM EST Office Visit Division of Immunologic, Inflammatory, and Infectious Neurological Disorders [address] [facility], 7th Floor, [address] [place] [address] Chace Henning MD [address] [place] [address] [address] [place] [phone] [email or web address] documented as of this encounter Visit Diagnoses Not on filedocumented in this encounter Care Teams Buffer Copper Relationship Specialty Start Date End Date Samina Luna MD [address] [place] [address] PCP - General Internal Medicine 01/09/18 documented as of this encounter Additional Source Comments The information contained in this document represents components of the legal health record. It is not the complete legal health record.[facility]
--- OUTSIDE RECORDS SUMMARY | 2025-07-03 07:42 | XMS_ITS | Encounter Summary ---
Author Organization [facility] Address [address] [facility] [address] [place] [address] Phone Care Team Providers Care Vacuum Kettle Cook Name Role Phone Samina Luna MD Primary Care Provide r Encounter Details Date Type Department Care Team (Late st Contact Info) Description 06/23/2021 Procedure Pass MRI, [facility] - [address] [place] [address] Social History Tobacco Use Types Packs/Day Years [...] Info) Description 07/22/2025 10:30 AM EDT Infusion [address] [place] [address] Chace Henning MD [address] [phone] [email or web address] 09/03/2025 12:30 PM EST Office Visit Division of Immunologic, Inflammatory, and Infectious Neurological Disorders [address] [facility], 7th [address], [address] [place] [address] Chace Henning MD 55 [facility] [address] [place] [phone] HALLEY@[email or web address] documented as of this encounter Visit Diagnoses Not on filedocumented in this encounter Care Teams Vacuum Kettle Cook Relationship Specialty Start Date End Date Samina Luna MD [address] [place] [address] PCP - General Internal Medicine 01/09/18 documented as of this encounter Additional Source Comments The information contained in this document represents components of the legal health record. It is not the complete legal health record.[facility]
--- OUTSIDE RECORDS SUMMARY | 2025-07-03 07:42 | XMS_ITS | Encounter Summary ---
Author Organization [facility] Address [address] [place] [address] Phone Care Team Providers Care Abstract Manager Name Role Phone Samina Luna MD Primary Care Provide r Encounter Details Date Type Department Care Team (Late st Contact Info) Description 06/23/2021 Procedure Pass MRI, [facility] - [address], [address] [place] [address] Social History Tobacco Use Types Packs/Day Years [...] Info) Description 07/22/2025 10:30 AM EDT Infusion [address] [place] [address] Chace Henning MD [address] [phone] [email or web address] [place] 09/03/2025 12:30 PM EST Office Visit Division of Immunologic, Inflammatory, and Infectious Neurological Disorders [address] [facility], 7th Floor, [address] [place] [address] Chace Henning MD [address] [facility] [address] [place] [phone] HALLEY@[email or web address] [place] documented as of this encounter Visit Diagnoses Not on filedocumented in this encounter Care Teams Abstract Manager Relationship Specialty Start Date End Date Samina Luna MD [address] [place] [phone] PCP - General Internal Medicine 01/09/18 documented as of this encounter Additional Source Comments The information contained in this document represents components of the legal health record. It is not the complete legal health record.[facility]
--- OUTSIDE RECORDS SUMMARY | 2025-07-03 07:43 | XMS_ITS | Encounter Summary ---
Author Organization [facility] Address [address] [facility] [address] [place] [address] Phone Care Team Providers Care Hospice Liaison Name Role Phone Samina Luna MD Primary Care Provide r Encounter Details Date Type Department Care Team (Late st Contact Info) Description 08/31/2022 Procedure Pass [facility] [place], [address] [address] Social History Tobacco Use Types Packs/Day Years [...] Info) Description 07/22/2025 10:30 AM EDT Infusion [address] [place] [address] Chace Henning MD [address] [place] [phone] HALLEY@[email or web address] [place] 09/03/2025 12:30 PM EST Office Visit Division of Immunologic, Inflammatory, and Infectious Neurological Disorders [address] [place] [address], 7th Floor, [address] [place] [address] Chace Henning MD [address] [facility] [address] [facility] [address] [place] [phone] HALLEY@[facility] documented as of this encounter Visit Diagnoses Not on filedocumented in this encounter Care Teams Hospice Liaison Relationship Specialty Start Date End Date Samina Luna MD [address] [place] [phone] PCP - General Internal Medicine 01/09/18 documented as of this encounter Additional Source Comments The information contained in this document represents components of the legal health record. It is not the complete legal health record.[facility]
--- OUTSIDE RECORDS SUMMARY | 2025-07-03 07:43 | XMS_ITS | Encounter Summary ---
Author Organization [facility] Address [address] [place] [address] Phone Care Team Providers Care Millwright Helper Name Role Phone Samina Luna MD Primary Care Provide r Encounter Details Date Type Department Care Team (Late st Contact Info) Description 08/29/2023 Procedure Pass MRI, [facility] [address] [place] [address] Social History Tobacco Use Types Packs/Day Years Used Date Smoking Tobacco: Former Smokeless Tobacco: Never Education Answer Date Recorded Are you interested in more education? Not on emilie e 01/28/2023 Are you concerned about learning? Not on file 01/28/2023 No 01/28/2023 No 01/28/2023 Digital Access Answer Date Recorded No 02/23/2023 No 02/23/2023 Reliable internet access at home? Not on file 02/23/2023 Device with a working camera? Not on file Intimate Partner Violence Answer Date R ecorded [...] PM EDT documented as of this encounter Last Filed Vital Signs Vital Sign Reading Time Taken Comments Blood Pressure - - Pulse - - Temperature - - Respiratory Rate - - Oxygen Saturation - - Inhaled Oxygen Concentration - - Weight 74.8 kg (165 lb) 08/30/2023 3:11 PM EST Height 177.8 cm (5' 10 ) 08/30/2023 3:11 PM EST 10/04 Body Mass Index 23.68 08/30/2023 3:11 PM EST documented in this encounter Plan of Treatment Upcoming Encounters Date Type Department Care Team (Late st Contact Info) Description 07/22/2025 10:30 AM EDT Infusion [address] [place] [address] Chace Henning MD [address] [place] [phone] HALLEY@[email or web address] [email or web address] 09/03/2025 12:30 PM EST Office Visit Division of Immunologic, Inflammatory, and Infectious Neurological Disorders [address] [place] [address], 7th Floor, [address] [place] [address] Chace Henning MD [address] [place] [phone] [email or web address] documented as of this encounter Visit Diagnoses Not on filedocumented in this encounter Care Teams Millwright Helper Relationship Specialty Start Date End Date Samina Luna MD 24 [place] [address] PCP - General Internal Medicine 01/09/18 documented as of this encounter Additional Source Comments The information contained in this document represents components of the legal health record. It is not the complete legal health record.[facility]
--- OUTSIDE RECORDS SUMMARY | 2025-07-03 07:43 | XMS_ITS | Clinical Summary ---
Author Organization [facility] Address [address] [place] [address] 7 [place] [address] Care Team Providers Care Mercerizer Name Role Phone Samina Luna Primary Care Provider + Hina Boyd Unavailable Unavailable Encounters Date Type Department Care Team Description 06/25/2025 Telephone [facility] Case Management [address] [place] [address] Hina Boyd from Last 3 Months Social History Tobacco Use Types Packs/Day Years Used Date Smoking Tobacco: Never Assessed Sex and Gender Information Value Date Recorded Sex Assigned at Male 08/02/2022 10:26 AM EDT Legal Sex Male 10:26 AM EDT Gender Identity Not on file Sexual Orientation Straight 08/20/2024 5: 30 PM EST Plan of Treatment Health Maintenance Due Date Last Done Comments CT Colonography 1969 Colonoscopy 1969 Colorectal Cancer Screening 1969 Depression Screening 1969 FIT DNA/Cologuard 1969 FIT 1969 FOBT 1969 Lipid Panel 1969 Sigmoidoscopy 1969 Disability Screening 1969 Alcohol/Substance Use Screening 1981 Tobacco Screening 1981 Pneumococcal Vaccine: 50+ Years (1 of 1 - PCV) 2019 Zoster Vaccines (1 of 2) 2019 COVID-19 Vaccine (3 - season) 2025 12/01/2020, 10/30/2020 Influenza Vaccine (#1) 2025 , 07/20/2019, 12/15/2018, Additional history exists DTaP/Tdap/Td Vaccines (3 - Td or Tdap) 04/30/2031 04/30/2021, 05/14/2011 RSV Patients and Patients Aged 60 years or older (1 - 1-dose 75+ series) 02/04/2044 Hepatitis B Vaccines Completed 04/28/2005, 09/01/2004, 07/07/2004 HIB Vaccines Aged Out No longer eligi [...] age to complete this topic Meningococcal B Vaccine Aged Out No l onger eligible based on patient's age to complete this topic Meningococcal Vaccine Aged Out No diego dayami eligible based on patient's age to complete this topic RSV under 20 months Aged Out No longe r eligible based on patient's age to complete this topic Rotavirus Vaccines Aged Out No longer eligible based on patient's age to complete this topic Care Teams Mercerizer Relationship Specialty Start Date End Date Samina Luna [address] [phone] PCP - General 08/20/24 Hina Boyd Health Navigator [facility] 06/25/25
--- OUTSIDE RECORDS SUMMARY | 2025-07-03 07:43 | XMS_ITS | Encounter Summary ---
Author Organization [facility] Address [address] [place] [address] Phone Care Team Providers Care Inside Sales Executive Name Role Phone Samina Luna MD Primary Care Provide r Encounter Details Date Type Department Care Team (Late st Contact Info) Description 09/02/2023 Procedure Pass MRI, [facility] [address] [place] [address] Social History Tobacco Use Types Packs/Day Years [...] Info) Description 07/22/2025 10:30 AM EDT Infusion [address] [place] [address] Chace Henning MD [address] [place] [phone] HALLEY@[email or web address] 09/03/2025 12:30 PM EST Office Visit Division of Immunologic, Inflammatory, and Infectious Neurological Disorders [address] [facility], 7th Floor, [address] [place] [address] Chace Henning MD [address] [place] [phone] HALLEY@[facility] documented as of this encounter Visit Diagnoses Not on filedocumented in this encounter Care Teams Inside Sales Executive Relationship Specialty Start Date End Date Samina Luna MD 24 [place] [address] PCP - General Internal Medicine 01/09/18 documented as of this encounter Additional Source Comments The information contained in this document represents components of the legal health record. It is not the complete legal health record.[facility]
--- OUTSIDE RECORDS SUMMARY | 2025-07-03 07:43 | XMS_ITS | Encounter Summary ---
Author Organization [facility] Address [address] [facility] [address] [place] [address] Phone Care Team Providers Care Counterintelligence/Humint Specialist Name Role Phone Samina Luna MD Primary Care Provide r Encounter Details Date Type Department Care Team (Late st Contact Info) Description 01/31/2018 Procedure Pass [facility] 55 [place] [address] Social History Tobacco Use Types Packs/Day Years [...] Info) Description 07/22/2025 10:30 AM EDT Infusion [address] [place] [address] Chace Henning MD [address] [phone] HALLEY@[email or web address] 09/03/2025 12:30 PM EST Office Visit Division of Immunologic, Inflammatory, and Infectious Neurological Disorders [address] [facility], 7th Floor, [address] [place] [address] Chace Henning MD [address] [place] [phone] HALLEY@[email or web address] documented as of this encounter Visit Diagnoses Not on filedocumented in this encounter Care Teams Counterintelligence/Humint Specialist Relationship Specialty Start Date End Date Samina Luna MD 24 [place] [address] PCP - General Internal Medicine 01/09/18 documented as of this encounter Additional Source Comments The information contained in this document represents components of the legal health record. It is not the complete legal health record.[facility]
--- OUTSIDE RECORDS SUMMARY | 2025-07-03 07:43 | XMS_ITS | Encounter Summary ---
Author Organization [facility] Address [address] [facility] [facility] [address] [place] [address] Phone Care Team Providers Care Right Of Way Supervisor Name Role Phone Samina Luna MD Primary Care Provide r Encounter Details Date Type Department Care Team (Late st Contact Info) Description 01/31/2018 Procedure Pass [facility] 55 [place] [address] Social History Tobacco Use Types Packs/Day Years [...] Info) Description 07/22/2025 10:30 AM EDT Infusion [address] [place] [address] Chace Henning MD [address] [phone] HALLEY@[email or web address] [place] 09/03/2025 12:30 PM EST Office Visit Division of Immunologic, Inflammatory, and Infectious Neurological Disorders 55 [facility], 7th Floor, [address] [place] [address] Chace Henning MD [address] [place] [phone] HALLEY@[email or web address] [place] documented as of this encounter Visit Diagnoses Not on filedocumented in this encounter Care Teams Right Of Way Supervisor Relationship Specialty Start Date End Date Samina Luna MD 24 [place] [address] PCP - General Internal Medicine 01/09/18 documented as of this encounter Additional Source Comments The information contained in this document represents components of the legal health record. It is not the complete legal health record.[facility]
--- OUTSIDE RECORDS SUMMARY | 2025-07-03 07:43 | XMS_ITS | Encounter Summary ---
Author Organization [facility] Address [address] [facility] [address] [place] [address] Phone Care Team Providers Care Tool Maintenance Technician Name Role Phone Samina Luna MD Primary Care Provide r Encounter Details Date Type Department Care Team (Late st Contact Info) Description 12/23/2023 Procedure [facility], Radio Flouroscopy [address] [place] [address] Social History Tobacco Use Types Packs/Day Years Used Date Smoking Tobacco: Former Smokeless Tobacco: Never Education Answer Date Recorded Are you interested in more education? Not on meilie e 01/28/2023 Are you concerned about learning? [...] Description 07/22/2025 10:30 AM EDT Infusion [address] [place] [address] Chace Henning MD [address] [place] [phone] HALLEY@[facility] 09/03/2025 12:30 PM EST Office Visit Division of Immunologic, Inflammatory, and Infectious Neurological Disorders [address] [place] [address], 7th Floor, [address] [place] [address] Chace Henning MD [address] [place] [phone] HALLEY@[facility] documented as of this encounter Visit Diagnoses Not on filedocumented in this encounter Care Teams Tool Maintenance Technician Relationship Specialty Start Date End Date Samina Luna MD 24 [place] [address] PCP - General Internal Medicine 01/09/18 documented as of this encounter Additional Source Comments The information contained in this document represents components of the legal health record. It is not the complete legal health record.[facility]
--- OUTSIDE RECORDS SUMMARY | 2025-07-03 07:43 | XMS_ITS | Encounter Summary ---
Author Organization [facility] Address [address] [place] [address] Phone Care Team Providers Care Wiring Mechanic Name Role Phone Samina Luna MD Primary Care Provide r Encounter Details Date Type Department Care Team (Late st Contact Info) Description 08/31/2022 Procedure Pass [facility], [address] [address] Social History Tobacco Use Types Packs/Day Years [...] Description 07/22/2025 10:30 AM EDT Infusion [address] [place] [address] Chace Henning MD [address] [place] [phone] HALLEY[email or web address] 09/03/2025 12:30 PM EST Office Visit Division of Immunologic, Inflammatory, and Infectious Neurological Disorders [address] [place] [address], 7th Floor, [address] [place] [address] Chace Henning MD [address] [facility] [address] [place] [phone] HALLEY@[email or web address] documented as of this encounter Visit Diagnoses Not on filedocumented in this encounter Care Teams Wiring Mechanic Relationship Specialty Start Date End Date Samina Luna MD [address] [place] [address] PCP - General Internal Medicine 01/09/18 documented as of this encounter Additional Source Comments The information contained in this document represents components of the legal health record. It is not the complete legal health record.[facility]
--- OUTSIDE RECORDS SUMMARY | 2025-07-03 07:43 | XMS_ITS | Encounter Summary ---
Author Organization [facility] Address [address] [facility] [address] [place] [address] Phone Care Team Providers Care School Bus Technician Name Role Phone Samina Luna MD Primary Care Provide r Encounter Details Date Type Department Care Team (Late st Contact Info) Description 03/26/2022 Procedure Pass MRI, [facility] - [address], [address] [place] [address] Social History Tobacco Use Types Packs/Day Years [...] Info) Description 07/22/2025 10:30 AM EDT Infusion [address] [place] [address] Chace Henning MD [address] [phone] HALLEY@[email or web address] 09/03/2025 12:30 PM EST Office Visit Division of Immunologic, Inflammatory, and Infectious Neurological Disorders [address] [facility], 7th Floor, [address] [place] [address] Chace Henning MD [address] [facility] [address] [place] [phone] HALLEY@[facility] documented as of this encounter Visit Diagnoses Not on filedocumented in this encounter Care Teams School Bus Technician Relationship Specialty Start Date End Date Samina Luna MD [address] [place] [phone] PCP - General Internal Medicine 01/09/18 documented as of this encounter Additional Source Comments The information contained in this document represents components of the legal health record. It is not the complete legal health record.[facility]
--- OUTSIDE RECORDS SUMMARY | 2025-07-03 07:43 | XMS_ITS | Encounter Summary ---
Author Organization [facility] Address [address] [facility] [address] [place] [address] Phone Care Team Providers Care Pressure Supervisor Name Role Phone Samina Luna MD Primary Care Provide r Encounter Details Date Type Department Care Team (Late st Contact Info) Description 08/31/2022 Procedure Pass [facility], [address] [address] Social History Tobacco Use Types Packs/Day Years [...] Info) Description 07/22/2025 10:30 AM EDT Infusion [address] [place] [address] Chace Henning MD [address] [place] [phone] HALLEY@[email or web address] [place] 09/03/2025 12:30 PM EST Office Visit Division of Immunologic, Inflammatory, and Infectious Neurological Disorders [address] [place] [address], 7th Floor, [address] [place] [address] Chace Henning MD [address] [facility] [address] [facility] 720 [place] [phone] HALLEY@[facility] documented as of this encounter Visit Diagnoses Not on filedocumented in this encounter Care Teams Pressure Supervisor Relationship Specialty Start Date End Date Samina Luna MD [address] [place] [phone] PCP - General Internal Medicine 01/09/18 documented as of this encounter Additional Source Comments The information contained in this document represents components of the legal health record. It is not the complete legal health record.[facility]
--- OUTSIDE RECORDS SUMMARY | 2025-07-03 07:43 | XMS_ITS | Encounter Summary ---
Author Organization [facility] Address [address] [place] [address] Phone Care Team Providers Care Song Plugger Name Role Phone Samina Luna MD Primary Care Provide r Encounter Details Date Type Department Care Team (Late st Contact Info) Description 03/27/2024 Procedure Pass MRI, [facility] [address] [place] [address] Social History Tobacco Use Types Packs/Day Years [...] Info) Description 07/22/2025 10:30 AM EDT Infusion [address] [place] [address] Chace Henning MD [address] [place] [phone] HALLEY@[facility] 09/03/2025 12:30 PM EST Office Visit Division of Immunologic, Inflammatory, and Infectious Neurological Disorders [address] [facility], 7th Floor, [address] [address] Chace Henning MD [address] [place] [phone] HALLEY@[facility] documented as of this encounter Visit Diagnoses Not on filedocumented in this encounter Care Teams Song Plugger Relationship Specialty Start Date End Date Samina Luna MD 24 [place] [address] PCP - General Internal Medicine 01/09/18 documented as of this encounter Additional Source Comments The information contained in this document represents components of the legal health record. It is not the complete legal health record.[facility]
--- OUTSIDE RECORDS SUMMARY | 2025-07-03 07:43 | XMS_ITS | Encounter Summary ---
Author Organization [facility] Address [address] [facility] [address] [place] [address] Phone Care Team Providers Care Lead Medical Technologist Name Role Phone Samina Luna MD Primary Care Provide r Encounter Details Date Type Department Care Team (Late st Contact Info) Description 08/26/2020 Procedure Pass [facility] - MRI [address] [facility], 6th [place] [address] Social History Tobacco Use Types Packs/Day Years [...] Info) Description 07/22/2025 10:30 AM EDT Infusion [address] [place] [address] Chace Henning MD [address] [place] [phone] HALLEY@[email or web address] [email or web address] 09/03/2025 12:30 PM EST Office Visit Division of Immunologic, Inflammatory, and Infectious Neurological Disorders [address] [place] [address] 7th Floor, [address] [place] [address] Chace Henning MD [address] [facility] 720 [place] [phone] HALLEY@[facility] [place] documented as of this encounter Visit Diagnoses Not on filedocumented in this encounter Care Teams Lead Medical Technologist Relationship Specialty Start Date End Date Samina Luna MD 24 [place] [address] PCP - General Internal Medicine 01/09/18 documented as of this encounter Additional Source Comments The information contained in this document represents components of the legal health record. It is not the complete legal health record.[facility]
--- OUTSIDE RECORDS SUMMARY | 2025-07-03 07:43 | XMS_ITS | Encounter Summary ---
Author Organization [facility] Address [address] [facility] [address] [place] [address] Phone Care Team Providers Care Histotechnician Name Role Phone Samina Luna MD Primary Care Provide r Encounter Details Date Type Department Care Team (Late st Contact Info) Description 09/12/2018 Procedure Pass [facility] MRI, [place] 2 55 [facility], 2nd [place] [address] Social History Tobacco Use Types Packs/Day Years [...] Info) Description 07/22/2025 10:30 AM EDT Infusion [facility] [address] [place] [address] Chace Henning MD [address] [place] [phone] HALLEY@[email or web address] 09/03/2025 12:30 PM EST Office Visit Division of Immunologic, Inflammatory, and Infectious Neurological Disorders 55 [facility], 7th Floor, [address] [place] [address] Chace Henning MD 55 [facility] 720 [place] [phone] HALLEY@[facility] documented as of this encounter Visit Diagnoses Not on filedocumented in this encounter Care Teams Histotechnician Relationship Specialty Start Date End Date Samina Luna MD [address] [place] [phone] PCP - General Internal Medicine 01/09/18 documented as of this encounter Additional Source Comments The information contained in this document represents components of the legal health record. It is not the complete legal health record.[facility]
--- OUTSIDE RECORDS SUMMARY | 2025-07-03 07:43 | XMS_ITS | Encounter Summary ---
Author Organization [facility] Address [address] [facility] [address] [place] [address] Phone Care Team Providers Care Molecular Geneticist Name Role Phone Samina Luna MD Primary Care Provide r Encounter Details Date Type Department Care Team (Late st Contact Info) Description 12/16/2020 Procedure Pass [facility] Emergency Radiology, Main [address], Floor 1 [place] [address] Social History Tobacco Use Types Packs/Day Years [...] 8:07 PM EDT Ashley Dixon, GENNARO * [place] Suicide Severity Rating Scale (Screener/Recent Self-Report) Question Answer Date of Assessment Author 1. Wish to be (Past 1 Month) No 021 8:07 PM EDT Ashley Dixon, GENNARO 2. Non-Specific Active Suici ari Thoughts (Past 1 Month) No 12/16/2020 8:07 PM EDT Luann Dixon, GENNARO 6. Suicidal Behavior (Lifetime) No 8:07 PM EDT Ashley Dixon RN documented as of this encounter Plan of Treatment Upcoming Encounters Date Type Department Care Team (Late st Contact Info) Description 07/22/2025 10:30 AM EDT Infusion [address] [place] [address] Chace Henning MD [address] [place] [phone] [email or web address] 09/03/2025 12:30 PM EST Office Visit Division of Immunologic, Inflammatory, and Infectious Neurological Disorders 55 [facility], 7th Floor, [address] [place] [address] Chace Henning MD [address] [place] [phone] HALLEY@[email or web address] documented as of this encounter Visit Diagnoses Not on filedocumented in this encounter Care Teams Molecular Geneticist Relationship Specialty Start Date End Date Samina Luna MD 24 [place] [address] PCP - General Internal Medicine 01/09/18 documented as of this encounter Additional Source Comments The information contained in this document represents components of the legal health record. It is not the complete legal health record.[facility]
--- OUTSIDE RECORDS SUMMARY | 2025-07-03 07:43 | XMS_ITS | Encounter Summary ---
Author Organization [facility] Address [address] [facility] [address] [place] [address] Phone Care Team Providers Care Shaving Machine Operator Name Role Phone Samina Luna MD Primary Care Provide r Encounter Details Date Type Department Care Team (Late st Contact Info) Description 06/13/2018 Procedure Pass [facility] MRI. [place] 1 55 [facility], 1st [place] [address] Social History Tobacco Use Types Packs/Day Years [...] Info) Description 07/22/2025 10:30 AM EDT Infusion [facility] [address], [facility] [address] [place] [address] Chace Henning MD [address] [place] [phone] HALLEY@[email or web address] 09/03/2025 12:30 PM EST Office Visit Division of Immunologic, Inflammatory, and Infectious Neurological Disorders [address] [place] [address], 7th Floor, [address] [place] [address] Chace Henning MD 55 [facility] 720 [place] [phone] HALLEY@[facility] documented as of this encounter Visit Diagnoses Not on filedocumented in this encounter Care Teams Shaving Machine Operator Relationship Specialty Start Date End Date Samina Luna MD [address] [place] [address] PCP - General Internal Medicine 01/09/18 documented as of this encounter Additional Source Comments The information contained in this document represents components of the legal health record. It is not the complete legal health record.[facility]
--- OUTSIDE RECORDS SUMMARY | 2025-07-03 07:43 | XMS_ITS | Encounter Summary ---
Author Organization [facility] Address [address] [place] [address] Phone Care Team Providers Care Right Of Way Cutter Name Role Phone Samina Luna MD Primary Care Provide r Encounter Details Date Type Department Care Team (Late st Contact Info) Description 03/03/2018 Telephone Division of Immunologic, Inflammatory, and Infectious Neurological Disorders 55 [facility], 7th Floor, [address] [place] [address] Chace Henning MD [address] [place] [phone] HALLEY@[email or web address] [place] Social History Tobacco Use Types Packs/Day Years [...] Info) Description 07/22/2025 10:30 AM EDT Infusion [address] [place] [address] Chace Henning MD [address] [place] [address] 720 [place] [phone] [email or web address] 09/03/2025 12:30 PM EST Office Visit Division of Immunologic, Inflammatory, and Infectious Neurological Disorders [address] [place] [address], 7th Floor, [address] [place] [address] Chace Henning MD [address] [place] [address] 720 [place] [phone] HALLEY@[facility] documented as of this encounter Visit Diagnoses Not on filedocumented in this encounter Care Teams Right Of Way Cutter Relationship Specialty Start Date End Date Samina Luna MD 24 [place] [address] PCP - General Internal Medicine 01/09/18 documented as of this encounter Additional Source Comments The information contained in this document represents components of the legal health record. It is not the complete legal health record.[facility]
--- OUTSIDE RECORDS SUMMARY | 2025-07-03 07:43 | XMS_ITS | Encounter Summary ---
Author Organization [facility] Address [address] [facility] [address] [place] [address] Phone Care Team Providers Care Self Propelled Hot Mix Roller Operator Name Role Phone Samina Luna MD Primary Care Provide r Encounter Details Date Type Department Care Team (Late st Contact Info) Description 03/26/2022 Procedure Pass MRI, [facility] [place] [facility] - [address], [address] [place] [address] Social History Tobacco Use Types Packs/Day Years [...] Info) Description 07/22/2025 10:30 AM EDT Infusion [address] [place] [address] Chace Henning MD [address] [phone] HALLEY@[email or web address] 09/03/2025 12:30 PM EST Office Visit Division of Immunologic, Inflammatory, and Infectious Neurological Disorders 55 [facility], 7th Floor, [address] [place] [address] Chace Henning MD 55 [facility] 720 [place] [phone] HALLEY@[email or web address] documented as of this encounter Visit Diagnoses Not on filedocumented in this encounter Care Teams Self Propelled Hot Mix Roller Operator Relationship Specialty Start Date End Date Samina Luna MD [address] [place] [phone] PCP - General Internal Medicine 01/09/18 documented as of this encounter Additional Source Comments The information contained in this document represents components of the legal health record. It is not the complete legal health record.[facility]
--- OUTSIDE RECORDS SUMMARY | 2025-07-03 07:43 | XMS_ITS | Encounter Summary ---
Author Organization [facility] Address [address] [facility] [address] [place] [address] Phone Care Team Providers Care Injection Maintenance Technician Name Role Phone Samina Luna MD Primary Care Provide r Encounter Details Date Type Department Care Team (Late st Contact Info) Description 11/10/2020 Procedure Pass [facility] - MRI [address] [facility], 6th [place] [address] Social History Tobacco Use Types Packs/Day Years [...] Encounters Date Type Department Care Team (Late Contact Info) Description 07/22/2025 10:30 AM EDT Infusion [address] [place] [phone] Chace Henning MD [address] [place] [phone] HALLEY@[email or web address] 09/03/2025 12:30 PM EST Office Visit Division of Immunologic, Inflammatory, and Infectious Neurological Disorders [address] [place] [address], 7th Floor, [address] [place] [address] Chace Henning MD 55 [facility] 720 [place] [phone] HALLEY@[facility] documented as of this encounter Visit Diagnoses Not on filedocumented in this encounter Care Teams Injection Maintenance Technician Relationship Specialty Start Date End Date Samina Luna MD 24 [place] [address] PCP - General Internal Medicine 01/09/18 documented as of this encounter Additional Source Comments The information contained in this document represents components of the legal health record. It is not the complete legal health record.[facility]
--- OUTSIDE RECORDS SUMMARY | 2025-07-03 07:43 | XMS_ITS | Encounter Summary ---
Author Organization [facility] Address [address] [place] [address] Phone Care Team Providers Care Cardiac Monitor Technician Name Role Phone Samina Luna MD Primary Care Provide r Encounter Details Date Type Department Care Team (Late st Contact Info) Description 09/02/2023 Procedure Pass MRI, [facility] [address] [place] [address] Social History Tobacco Use Types Packs/Day Years [...] Info) Description 07/22/2025 10:30 AM EDT Infusion [address] [place] [address] Chace Henning MD [address] [place] [phone] HALLEY@[facility] 09/03/2025 12:30 PM EST Office Visit Division of Immunologic, Inflammatory, and Infectious Neurological Disorders 55 [facility], 7th Floor, [address] [place] [address] Chace Henning MD [address] [place] [phone] HALLEY@[facility] documented as of this encounter Visit Diagnoses Not on filedocumented in this encounter Care Teams Cardiac Monitor Technician Relationship Specialty Start Date End Date Samina Luna MD 24 [place] [address] PCP - General Internal Medicine 01/09/18 documented as of this encounter Additional Source Comments The information contained in this document represents components of the legal health record. It is not the complete legal health record.[facility]
--- OUTSIDE RECORDS SUMMARY | 2025-07-03 07:43 | XMS_ITS | Encounter Summary ---
Author Organization [facility] Address [address] [facility] [address] [place] [address] Phone Care Team Providers Care Residential Solar Consultant Name Role Phone Samina Luna MD Primary Care Provide r Encounter Details Date Type Department Care Team (Late st Contact Info) Description 06/13/2018 Procedure Pass [facility] MRI. Founders 1 55 [facility], 1st [place] [address] Social History Tobacco Use Types Packs/Day Years [...] Info) Description 07/22/2025 10:30 AM EDT Infusion [facility] [address], [facility] [address] [place] [address] Chace Henning MD [address] [place] [phone] HALLEY@[email or web address] 09/03/2025 12:30 PM EST Office Visit Division of Immunologic, Inflammatory, and Infectious Neurological Disorders [address] [place] [address], 7th Floor, [address] [place] [address] Chace Henning MD 55 [facility] 720 [place] [phone] HALLEY@[facility] documented as of this encounter Visit Diagnoses Not on filedocumented in this encounter Care Teams Residential Solar Consultant Relationship Specialty Start Date End Date Samina Luna MD [address] [place] [phone] PCP - General Internal Medicine 01/09/18 documented as of this encounter Additional Source Comments The information contained in this document represents components of the legal health record. It is not the complete legal health record.[facility]
--- OUTSIDE RECORDS SUMMARY | 2025-07-03 07:43 | XMS_ITS | Encounter Summary ---
Author Organization [facility] Address [address] [facility] [address] [place] [address] Phone Care Team Providers Care Recycling Center Operator Name Role Phone Samina Luna MD Primary Care Provide r Encounter Details Date Type Department Care Team (Late st Contact Info) Description 08/26/2020 Procedure Pass [facility] - MRI 32 [facility], 6th [place] [address] Social History Tobacco Use Types Packs/Day Years [...] Description 07/22/2025 10:30 AM EDT Infusion [address] [place] [address] Chace Henning MD [address] [place] [phone] [email or web address] 09/03/2025 12:30 PM EST Office Visit Division of Immunologic, Inflammatory, and Infectious Neurological Disorders [address] [place] [address] 7th Floor, [address] [place] [address] Chace Henning MD 55 [facility] 720 [place] [phone] HALLEY@[email or web address] documented as of this encounter Visit Diagnoses Not on filedocumented in this encounter Care Teams Recycling Center Operator Relationship Specialty Start Date End Date Samina Luna MD 24 [place] [address] PCP - General Internal Medicine 01/09/18 documented as of this encounter Additional Source Comments The information contained in this document represents components of the legal health record. It is not the complete legal health record.[facility]
--- OUTSIDE RECORDS SUMMARY | 2025-07-03 07:43 | XMS_ITS | Clinical Summary ---
Author Organization [facility] Address [address] [place] [address] Phone Care Team Providers Care Cover Cutter Machine Name Role Phone Samina Luna MD Primary Care Provide r Allergies Active Allergy Reactions Criticality Noted Date Comments Sulfa (Sulfonamide Antibiotics) Hives 06/03 Medications traZODone (DESYREL) 100 mg tablet Take 0.5 tablets (50 mg total) by mouth at bedtime. Active ocrelizumab (OCREVUS IV) Infuse into a venous catheter. Active DULoxetine (CYMBALTA) [address] capsule Take 1 capsule (30 mg total) by mouth 1 (one) time each day. Do not crush or chew. 30 capsule 3 5 Active rOPINIRole (REQUIP) 2 mg tabletIndication s:restless leg syndrome Take 1 tablet (2 mg total) by mouth at bedtime for 7 days, THEN 2 tablets (4 mg total) at bedtime. 90 tablet 2 5 Active baclofen (LIORESAL) 10 mg tablet 1-2 tablets at night 60 tablet 2 5 Active dalfampridine 10 mg tablet extended release 12 hrIndications:Mu ltiple sclerosis,Gait abnormality Take 10 mg by mouth every 12 (twelve) hours. 60 tablet 2 5 Active dalfampridine 10 mg tablet extended release 12 hrIndications:Mu ltiple sclerosis,Gait abnormality Take 10 mg by mouth every 12 (twelve) hours. 60 tablet 2 06/04/20 25 Discontinu ed(Reorder ) Hospital, Clinic, or Other Facility Administered Medication Ordered Dose Route Frequency Start Date End Date Status onabotulinumtoxinA (BOTOX) 200 unit injection 200 UnitsIndications:Chronic migraine without aura without status migrainosus, not intractable 200 Units IM Once 06/19/2025 06/19/2025 Ended Encounters Date Type Department Care Team Description 07/03/[address] [phone] Lisa Shelton, ASSISTANT PLANT CONTROLLER 06/19/2025 4:00 PM EDT Procedure visit [facility] [address] [phone] Maria Esther Ruby MD Chronic migraine without aura without status migrainosus, not intractable (Primary Dx) 05/28/2025 3:00 PM EDT Office Visit [facility] [address] [phone] Maria Esther Ruby MD Multiple sclerosis ([facility] V24, [facility] V28) (Primary Dx); Gait abnormality; High risk medication use; Spasticity; Neuropathy from Last 3 Months Surgical History Surgery Date Site/Laterality Comments ANTERIOR CERVICAL DISCECTOMY W/ FUSION Medical History Medical History Date Comments Sleep apnea Neuromuscular disorder ([facility] V24, [facility] V28 ) MS (multiple sclerosis) Social History Tobacco Use Types Packs/Day Years [...] Orientation Straight 08/21/2024 10 :15 AM EST Obstetrics History Last Filed Vital Signs Vital Sign Reading Time Taken Comments Blood Pressure 155/88 05/28/2025 2:56 PM EDT Pulse 67 05/28/2025 2:56 PM EDT Temperature 36.7 C (98 F) 11/23/2024 8:47 AM EST Respiratory Rate 16 08/21/2024 1:27 PM EST Oxygen Saturation 98% 05/28/2025 2:56 PM EDT Inhaled Oxygen Concentration - - Weight 79.8 kg (176 lb) 05/28/2025 2:56 PM EDT Height 180.3 cm (5' 11 ) 05/28/2025 2:56 PM EDT Body Mass Index 24.55 05/28/2025 2:56 PM EDT Plan of Treatment Upcoming Encounters Date Type Department Care Team (Late st Contact Info) Description 09/18/2025 4:20 PM EST Procedure visit [facility] 175 [facility] [address] [place] [address] Maria Esther Ruby MD 175 [place], [place] [phone] Health Maintenance Due Date Last Done Comments Colorectal Cancer Screening: Colonoscopy 1969 Hepatitis B Vaccines (1 of 3 - 19+ 3-dose series) 02/04/1988 Pneumococcal Vaccine: 50+ Years (1 of 1 - PCV) 2019 Zoster Vaccines (1 of 2) 2019 Cholesterol Screening (Lipid Panel) 08/16/2024 Social Influencers of Health Screening 08/16/2024 Depression Screening 10/03/2024 COVID-19 Vaccine ( - season) 2025 12/01/2020, 10/30/2020 Influenza Vaccine (#1) 2025 2, 06/24/2020, 06/24/2020, Additional history exists DTaP,Tdap,and Td Vaccines (3 - Td or Tdap) 04/30/2031 04/30/2021, 05/14/2011 RSV Immunization Adult Patients (1 - 1-dose 75+ series) 02/04/2044 HIV Screening Completed 09/21/2024 Hepatitis C Screening [...] Procedure Name Priority Date/Time Associated Diagnosis Comments HEPATITIS C ANTIBODY Routine 09/21/2024 3:54 PM EST Multiple sclerosis ([facility] V24, [facility] V28) HIV 1, 2 ANTIBODY, P24 ANTIGEN WITH REFLEX TO DIFFERENTIATION Routine 09/21/2024 3:54 PM EST Multiple sclerosis ([facility] V24, [facility] V28) from Last 3 Months or Most Recently Relevant to Health Maintenance Results * Hepatitis C antibody (09/21/2024 3:54 PM EST) Pathologist [facility] Hepatitis C Antibody Negative Negative LAB CHEMISTRY METHOD 09/21/2024 8:05 PM EST [facility] Blood Venous blood specimen / Unknown Venipuncture / Unknown 09/21/2024 3:54 PM EST 09/21/2024 3:54 PM EST us Maria Esther Ruby MD LAB BLOOD ORDERABLES Fin al Result [facility] [address] [place] [address], * HIV 1,2 antibody, p24 antigen with reflex to differentiation (09/21/2024 3:54 PM EST) Pathologist [facility] HIV Combo AB/AG Negative Negative LAB CHEMISTRY METHOD 09/21/2024 8:06 PM EST [facility] Blood Venous blood specimen / Unknown Venipuncture / Unknown 09/21/2024 3:54 PM EST 09/21/2024 3:54 PM EST Narrative [facility] - 09/21/2024 8:06 PM EST This assay is a 4th generation assay allowing for earlier detection of HIV infection by detecting the presence of the HIV-1 p24 antigen as well as the traditional antibodies to HIV type 1 (including group O) and type 2. Use of a 4th generation assay is the current CDC recommendation for HIV screening. Maria Esther Ruby MD LAB BLOOD ORDERABLES Fin al Result [facility] [address] [place] [address], from Last 3 Months or Most Recently Relevant to Health Maintenance Insurance [facility] Care Teams Cover Cutter Machine Relationship Specialty Start Date End Date Samina Luna MD [address] [place], [place] [address]ORACIO swann PCP - General Internal Medicine 12/20/17
--- OUTSIDE RECORDS SUMMARY | 2025-07-03 07:43 | XMS_ITS | Encounter Summary ---
Author Organization [facility] Address [address] [place] [address] Phone Care Team Providers Care Cartoon Designer Name Role Phone Samina Luna MD Primary Care Provide r Encounter Details Date Type Department Care Team (Late st Contact Info) Description 09/02/2023 Procedure Pass MRI, [facility] [address] [place] [address] Social History Tobacco Use Types Packs/Day Years [...] Info) Description 07/22/2025 10:30 AM EDT Infusion [address] [place] [address] Chace Henning MD [address] [place] [phone] HALLEY@[facility] 09/03/2025 12:30 PM EST Office Visit Division of Immunologic, Inflammatory, and Infectious Neurological Disorders 55 [facility], 7th Floor, [address] [place] [address] Chace Henning MD [address] [place] [phone] HALLEY@[facility] documented as of this encounter Visit Diagnoses Not on filedocumented in this encounter Care Teams Cartoon Designer Relationship Specialty Start Date End Date Samina Luna MD [address] [place] [address] PCP - General Internal Medicine 01/09/18 documented as of this encounter Additional Source Comments The information contained in this document represents components of the legal health record. It is not the complete legal health record.[facility]
--- OUTSIDE RECORDS SUMMARY | 2025-07-03 07:43 | XMS_ITS | Encounter Summary ---
Author Organization [facility] Address [address] [place] [address] Care Team Providers Care Exterminator Helper Name Role Phone Samina Luna MD Primary Care Provide r Reason for Visit * Reason Onset Date Comments Multiple Sclerosis 07/03/2025 Encounter Details Date Type Department Care Team (Late st Contact Info) Description 07/03/2025 Telephone [facility] [address] [phone] Lisa Shelton LCSW Social History Tobacco Use Types Packs/Day Years Used Date Smoking Tobacco: Never Smokeless Tobacco: Never Alcohol Use Standard Drinks/Week Comments Not Currently 0 (1 standard drink = 0.6 oz pur e alcohol) Sex and Gender Information Value Date Recorded Sex Assigned at Male 08/19/2024 6:33 PM EST Legal Sex Male 11:12 PM EST Gender Identity Male 08/19/2024 6:33 PM EST Sexual Orientation Straight 08/21/2024 10 :15 AM EST documented as of this encounter Progress Notes * Lisa Shelton LCSW - 07/03/2025 5:34 AM EDT Returned pt's call re [employer] and letter for work. Pt reported [employer] is misunderstanding the start date of his long-term disability and onset of worsening MS symptoms. He stateshe will send me an email of a letter he wants Dr. Ruby to review so that he can send it to [employer] Grimm. He also stated his employer is requiring a return to work letter stating that he is safely able to return to work after receiving our letter dated 06/19/25. Patient stated he is being kept out of workthrough 07/04. Reported I will forward the email to Dr. Ruby when I receive it and will inquire to her aboutthe return to work letter. documented in this encounter Plan of Treatment Upcoming Encounters Date Type Department Care Team (Late st Contact Info) Description 09/18/2025 4:20 PM EST Procedure visit [facility] [address] [place] [address] Maria Esther Ruby MD [address] [place] [address] documented as of this encounter Visit Diagnoses Not on filedocumented in this encounter Care Teams Exterminator Helper Relationship Specialty Start Date End Date Samina Luna MD [address] [place] [address] PCP - General Internal Medicine 12/20/17 documented as of this encounter
--- OUTSIDE RECORDS SUMMARY | 2025-07-03 07:43 | XMS_ITS | Encounter Summary ---
Author Organization [facility] Address [address] [facility] [facility] [address] [place] [address] Phone Care Team Providers Care Business Mgr Name Role Phone Samina Luna MD Primary Care Provide r Reason for Referral * Consultation (Elective) - Closed Specialty Diagnoses / Procedures Referred By Contjada [email or web address] Referred To Contact Neurology Diagnoses Encounter for consultation System, Provider Not In, PhD [id number] [place] [phone] Phone: tel: Referral ID Status Reason Start Date Expiration Date Visits Re quested Visits Authorized [id number] Closed 01/31/2018 01/31/2019 99 99 Encounter Details Date Type Department Care Team (Late st Contact Info) Description 01/27/2018 Transcribe Orders [facility] Department of Neurology [address], [address] [place] [address] Samina Luna MD [address] [place] [address] Encounter for consultation (Primary Dx) Social History Tobacco Use Types Packs/Day Years [...] Info) Description 07/22/2025 10:30 AM EDT Infusion [address] [place] [address] Chace Henning MD [address] [place] [phone] [email or web address] 09/03/2025 12:30 PM EST Office Visit Division of Immunologic, Inflammatory, and Infectious Neurological Disorders [address] [place] [address], 7th Floor, [address] [place] [address] Chace Henning MD [address] [place] [phone] [email or web address] Scheduled Referrals Name Type Priority Associated Diagnoses Orde r Schedule Ambulatory referral to [facility] Neurology Outpatient Referral Routine Encounter for consultation Ordered: 01/27/2018 documented as of this encounter Visit Diagnoses Diagnosis Encounter for consultation- Primary documented in this encounter Care Teams Business Mgr Relationship Specialty Start Date End Date Samina Luna MD [address] [place] [address] PCP - General Internal Medicine 01/09/18 documented as of this encounter Additional Source Comments The information contained in this document represents components of the legal health record. It is not the complete legal health record.[facility]
--- OUTSIDE RECORDS SUMMARY | 2025-07-03 07:43 | XMS_ITS | Encounter Summary ---
Author Organization [facility] Address [address] [facility] [address] [place] [address] Phone Care Team Providers Care Edge Stitcher Name Role Phone Samina Luna MD Primary Care Provide r Encounter Details Date Type Department Care Team (Late st Contact Info) Description 09/12/2018 Procedure Pass [facility], [place] [address] [facility], 2nd [place] [address] Social History Tobacco Use Types Packs/Day Years [...] Info) Description 07/22/2025 10:30 AM EDT Infusion [facility] [address] [place] [address] Chace Henning MD [address] [place] [phone] [email or web address] 09/03/2025 12:30 PM EST Office Visit Division of Immunologic, Inflammatory, and Infectious Neurological Disorders [address] [facility], 7th Floor, [address] [place] [address] Chace Henning MD [address] [facility] [address] [place] [phone] [email or web address] documented as of this encounter Visit Diagnoses Not on filedocumented in this encounter Care Teams Edge Stitcher Relationship Specialty Start Date End Date Samina Luna MD [address] [place] [phone] PCP - General Internal Medicine 01/09/18 documented as of this encounter Additional Source Comments The information contained in this document represents components of the legal health record. It is not the complete legal health record.[facility]
--- OUTSIDE RECORDS SUMMARY | 2025-07-03 07:43 | XMS_ITS | Encounter Summary ---
Author Organization [facility] Address [address] [facility] [address] [place] [address] Phone Care Team Providers Care Fire Behavior Analyst Name Role Phone Samina Luna MD Primary Care Provide r Encounter Details Date Type Department Care Team (Late st Contact Info) Description 03/26/2022 Procedure Pass MRI, [facility] [address], [address] [place] [address] Social History Tobacco Use Types Packs/Day Years [...] Description 07/22/2025 10:30 AM EDT Infusion [address] [place] [address] Chace Henning MD [address] [phone] [email or web address] 09/03/2025 12:30 PM EST Office Visit Division of Immunologic, Inflammatory, and Infectious Neurological Disorders [address] [facility], 7th Floor, [address] [place] [address] Chace Henning MD [address] [facility] [address] [place] [phone] [email or web address] documented as of this encounter Visit Diagnoses Not on filedocumented in this encounter Care Teams Fire Behavior Analyst Relationship Specialty Start Date End Date Samina Luna MD [address] [place] [phone] PCP - General Internal Medicine 01/09/18 documented as of this encounter Additional Source Comments The information contained in this document represents components of the legal health record. It is not the complete legal health record.[facility]
--- OUTSIDE RECORDS SUMMARY | 2025-07-03 07:43 | XMS_ITS | Encounter Summary ---
Author Organization [facility] Address [address] [facility] [address] [place] [address] Phone Care Team Providers Care Base Manager Name Role Phone Samina Luna MD Primary Care Provide r Encounter Details Date Type Department Care Team (Late st Contact Info) Description 12/26/2023 Transcribe Orders [facility] for Outpatient Care, Radio Flouroscopy [address] [place] [address] Randy Social History Tobacco Use Types Packs/Day Years [...] Info) Description 07/22/2025 10:30 AM EDT Infusion [address] [place] [address] Chace Henning MD [address] [place] [phone] [email or web address] 09/03/2025 12:30 PM EST Office Visit Division of Immunologic, Inflammatory, and Infectious Neurological Disorders [address] [place] [address], 7th Floor, [address] [place] [address] Chace Henning MD [address] [place] [phone] [email or web address] documented as of this encounter Visit Diagnoses Not on filedocumented in this encounter Care Teams Base Manager Relationship Specialty Start Date End Date Samina Luna MD [address] [place] [address] PCP - General Internal Medicine 01/09/18 documented as of this encounter Additional Source Comments The information contained in this document represents components of the legal health record. It is not the complete legal health record.[facility]
--- OUTSIDE RECORDS SUMMARY | 2025-07-03 07:44 | XMS_ITS | Encounter Summary ---
Author Organization [facility] Address [address] [facility] [address] [place] [address] Phone Care Team Providers Care Temper Mill Operator Name Role Phone Samina Luna MD Primary Care Provide r Encounter Details Date Type Department Care Team (Late st Contact Info) Description 09/16/2019 Procedure Pass [facility] MRI, [place] [address] [facility], 2nd [place] [address] Social History Tobacco Use Types Packs/Day Years [...] Info) Description 07/22/2025 10:30 AM EDT Infusion [facility] [address] [place] [address] Chace Henning MD [address] [place] [phone] [email or web address] 09/03/2025 12:30 PM EST Office Visit Division of Immunologic, Inflammatory, and Infectious Neurological Disorders [address] [facility], 7th Floor, [address] [place] [address] Chace Henning MD [address] [facility] [address] [place] [phone] [email or web address] documented as of this encounter Visit Diagnoses Not on filedocumented in this encounter Care Teams Temper Mill Operator Relationship Specialty Start Date End Date Samina Luna MD [address] [place] [phone] PCP - General Internal Medicine 01/09/18 documented as of this encounter Additional Source Comments The information contained in this document represents components of the legal health record. It is not the complete legal health record.[facility]
--- OUTSIDE RECORDS SUMMARY | 2025-07-03 07:44 | XMS_ITS | Encounter Summary ---
Author Organization [facility] Address [address] [place] [address] Phone Care Team Providers Care Lokie Driver Name Role Phone Samina Luna MD Primary Care Provide r Reason for Referral * MRI/CAT Scan - Closed Specialty Diagnoses / Procedures Referred By Carrie t Referred To Contact Radiology Diagnoses Multiple sclerosis Procedures MRI Thoracic Spine Chace Henning MD Phone: tel: fax: mailto:[email or web address] Referral ID Status Reason Start Date Expiration Date Visits Re quested Visits Authorized [id number] Closed 09/16/2019 11/10/2019 1 1 * MRI/CAT Scan - Closed Specialty Diagnoses / Procedures Referred By Contac t Referred To Contact Radiology Diagnoses Multiple sclerosis Procedures MRI Cervical Spine Chace Henning MD Phone: tel: fax: mailto:[email or web address] Referral ID Status Reason Start Date Expiration Date Visits Re quested Visits Authorized [id number] Closed 09/16/2019 11/10/2019 1 1 * MRI/CAT Scan - Closed Specialty Diagnoses / Procedures Referred By Contac t Referred To Contact Radiology Diagnoses Multiple sclerosis Procedures MRI Brain Chace Henning MD Phone: tel: fax: mailto:[email or web address] Referral ID Status Reason Start Date Expiration Date Visits Re quested Visits Authorized [id number] Closed 09/16/2019 11/10/2019 1 1 Encounter Details Date Type Department Care Team (Latest Contact Info) Description 09/16/2019 Ancillary Orders Division of Immunologic, Inflammatory, and Infectious Neurological Disorders [address] [facility], 7th [address], [address] [place] [address] Chace Henning MD [address] [place] [phone] [email or web address] Multiple sclerosis Social History Tobacco Use Types Packs/Day Years [...] Info) Description 07/22/2025 10:30 AM EDT Infusion [facility] [address] [place] [address] Chace Henning MD [address] [place] [phone] [email or web address] 09/03/2025 12:30 PM EST Office Visit Division of Immunologic, Inflammatory, and Infectious Neurological Disorders [address] [facility] [address], 7th [address], [address] [place] [address] Chace Henning MD [address] [place] [phone] [email or web address] documented as of this encounter Results * MRI THORACIC SPINE (NEURO) WITH AND WITHOUT CONTRAST (09/16/2019 12:04 PM EST) Anatomical Region Laterality Modality T-spine Magnetic Resonan ce 09/17/2019 9:23 AM EST Impressions 09/17/2019 11:43 AM EST 1. Unchanged T2 hyperintense cord lesions at C2, C6, and T4-5. No evidence of active demyelination. 2. Postsurgical changes following C5-C7 ACDF. 3. Stable multilevel degenerative changes, most pronounced at C5-6 where there is moderate right and mild left foraminal stenosis. He ATTESTATION: I, Dr. Donta Wilson as teaching physician, have reviewed the images for this case and if necessary edited the report originally created by Dr. Ran Dawson. Narrative 09/17/2019 11:43 AM EST TECHNIQUE: MRI CERVICAL SPINE (NEURO) WITH AND WITHOUT CONTRAST, MRI THORACIC SPINE (NEURO) WITH AND WITHOUT CONTRAST COMPARISON: 03/13/2019 FINDINGS: CERVICAL SPINE: There are stable postsurgical changes following C5-C7 ACDF. Vertebral alignment is normal. Vertebral body height is preserved. There is an unchanged T2 hyperintense nonenhancing lesion in the left aspect of the cord at C2. There is an additional T2 hyperintense nonenhancing lesion in the right aspect of the cord at C6, probably unchanged given differences in technique. There is no abnormal enhancement on post-contrast images. There are stable multilevel degenerative changes most pronounced at C5-6 where there is moderate right and mild left foraminal stenosis. There is no significant canal stenosis or cord impingement. Other than the aforementioned postsurgical changes, the paraspinal soft tissues are unremarkable. The visualized portions of the brain are better characterized on concurrent MRI brain.. THORACIC SPINE: Vertebral alignment is normal. Vertebral body height is preserved. A T2 hyperintense lesion in the T11 vertebral body is unchanged, probably an intraosseous hemangioma. A T2 hyperintense nonenhancing lesion in the dorsal cord at T4-5 has not significantly changed. There is no abnormal enhancement on postcontrast images. There are persistent minimal multilevel degenerative changes without evidence of significant canal or foraminal stenosis. The paraspinal soft tissues are unremarkable. There is a T2 hyperintense left renal lesion, probably a cyst. Procedure Note Donta Wilson MD - 09/17/2019 TECHNIQUE: MRI CERVICAL SPINE (NEURO) WITH AND WITHOUT CONTRAST, MRITHORACIC SPINE (NEURO) WITH AND WITHOUT CONTRAST COMPARISON: 03/13/2019 FINDINGS: CERVICAL SPINE: There are stable postsurgical changes following C5-C7 ACDF. Vertebral alignment is normal. Vertebral body height is preserved. There is an unchanged T2 hyperintense nonenhancing lesion in the leftaspect of the cord at C2. There is an additional T2 hyperintense nonenhancing lesionin the right aspect of the cord at C6, probably unchanged given differencesin technique. There is no abnormal enhancement on post-contrast images. There are stable multilevel degenerative changes most pronounced at C5-6where there is moderate right and mild left foraminal stenosis. There is no significant canal stenosis or cord impingement. Other than the aforementioned postsurgical changes, the paraspinal softtissues are unremarkable. The visualized portions of the brain are better characterized onconcurrent MRI brain.. THORACIC SPINE: Vertebral alignment is normal. Vertebral body height is preserved. A T2 hyperintense lesion in the T11 vertebral body is unchanged, probably an intraosseous hemangioma. A T2 hyperintense nonenhancing lesion in the dorsal cord at T4-5 has not significantly changed. There is no abnormal enhancement on postcontrast images. There are persistent minimal multilevel degenerative changes withoutevidence of significant canal or foraminal stenosis. The paraspinal soft tissues are unremarkable. There is a T2 hyperintense left renal lesion, probably a cyst. IMPRESSION: 1. Unchanged T2 hyperintense cord lesions at C2, C6, and T4-5. Noevidence of active demyelination. 2. Postsurgical changes following C5-C7 ACDF. 3. Stable multilevel degenerative changes, most pronounced at C5-6 wherethere is moderate right and mild left foraminal stenosis. He ATTESTATION: I, Dr. Donta Wilson as teaching physician, have reviewedthe images for this case and if necessary edited the report originally createdby Dr. Ran Dawson. us Chace Henning MD IMG MR XSPECIALTY Final Resu lt * MRI CERVICAL SPINE (NEURO) WITH AND WITHOUT CONTRAST (09/16/2019 12:04 PM EST) Anatomical Region Laterality Modality C-spine Magnetic Resonan ce 09/17/2019 9:23 AM EST Impressions 09/17/2019 11:43 AM EST 1. Unchanged T2 hyperintense cord lesions at C2, C6, and T4-5. No evidence of active demyelination. 2. Postsurgical changes following C5-C7 ACDF. 3. Stable multilevel degenerative changes, most pronounced at C5-6 where there is moderate right and mild left foraminal stenosis. He ATTESTATION: I, Dr. Donta Wilson as teaching physician, have reviewed the images for this case and if necessary edited the report originally created by Dr. Ran Dawson. Narrative 09/17/2019 11:43 AM EST TECHNIQUE: MRI CERVICAL SPINE (NEURO) WITH AND WITHOUT CONTRAST, MRI THORACIC SPINE (NEURO) WITH AND WITHOUT CONTRAST COMPARISON: 03/13/2019 FINDINGS: CERVICAL SPINE: There are stable postsurgical changes following C5-C7 ACDF. Vertebral alignment is normal. Vertebral body height is preserved. There is an unchanged T2 hyperintense nonenhancing lesion in the left aspect of the cord at C2. There is an additional T2 hyperintense nonenhancing lesion in the right aspect of the cord at C6, probably unchanged given differences in technique. There is no abnormal enhancement on post-contrast images. There are stable multilevel degenerative changes most pronounced at C5-6 where there is moderate right and mild left foraminal stenosis. There is no significant canal stenosis or cord impingement. Other than the aforementioned postsurgical changes, the paraspinal soft tissues are unremarkable. The visualized portions of the brain are better characterized on concurrent MRI brain.. THORACIC SPINE: Vertebral alignment is normal. Vertebral body height is preserved. A T2 hyperintense lesion in the T11 vertebral body is unchanged, probably an intraosseous hemangioma. A T2 hyperintense nonenhancing lesion in the dorsal cord at T4-5 has not significantly changed. There is no abnormal enhancement on postcontrast images. There are persistent minimal multilevel degenerative changes without evidence of significant canal or foraminal stenosis. The paraspinal soft tissues are unremarkable. There is a T2 hyperintense left renal lesion, probably a cyst. Procedure Note Donta Wilson MD - 09/17/2019 TECHNIQUE: MRI CERVICAL SPINE (NEURO) WITH AND WITHOUT CONTRAST, MRITHORACIC SPINE (NEURO) WITH AND WITHOUT CONTRAST COMPARISON: 03/13/2019 FINDINGS: CERVICAL SPINE: There are stable postsurgical changes following C5-C7 ACDF. Vertebral alignment is normal. Vertebral body height is preserved. There is an unchanged T2 hyperintense nonenhancing lesion in the leftaspect of the cord at C2. There is an additional T2 hyperintense nonenhancing lesionin the right aspect of the cord at C6, probably unchanged given differencesin technique. There is no abnormal enhancement on post-contrast images. There are stable multilevel degenerative changes most pronounced at C5-6where there is moderate right and mild left foraminal stenosis. There is no significant canal stenosis or cord impingement. Other than the aforementioned postsurgical changes, the paraspinal softtissues are unremarkable. The visualized portions of the brain are better characterized onconcurrent MRI brain.. THORACIC SPINE: Vertebral alignment is normal. Vertebral body height is preserved. A T2 hyperintense lesion in the T11 vertebral body is unchanged, probably an intraosseous hemangioma. A T2 hyperintense nonenhancing lesion in the dorsal cord at T4-5 has not significantly changed. There is no abnormal enhancement on postcontrast images. There are persistent minimal multilevel degenerative changes withoutevidence of significant canal or foraminal stenosis. The paraspinal soft tissues are unremarkable. There is a T2 hyperintense left renal lesion, probably a cyst. IMPRESSION: 1. Unchanged T2 hyperintense cord lesions at C2, C6, and T4-5. Noevidence of active demyelination. 2. Postsurgical changes following C5-C7 ACDF. 3. Stable multilevel degenerative changes, most pronounced at C5-6 wherethere is moderate right and mild left foraminal stenosis. He ATTESTATION: I, Dr. Donta Wilson as teaching physician, have reviewedthe images for this case and if necessary edited the report originally createdby Dr. Ran Dawson. us Chace Henning MD IMG MR XSPECIALTY Final Resu lt * MRI BRAIN (MS) WITH AND WITHOUT CONTRAST (09/16/2019 12:04 PM EST) Anatomical Region Laterality Modality Head Magnetic Resonan ce 09/17/2019 9:14 AM EST Impressions 09/17/2019 11:40 AM EST There is no evidence of acute, subacute or interval development of new demyelinating foci since March,. ATTESTATION: I, Dr. Donta Wilson as teaching physician, have reviewed the images for this case and if necessary edited the report originally created by Dr. Ran Dawson. Narrative 09/17/2019 11:40 AM EST TECHNIQUE: MRI BRAIN (MS) WITH AND WITHOUT CONTRAST COMPARISON: 03/13/2019 FINDINGS: Diffusion-weighted imaging is without evidence of an acute intracranial process. Postcontrast imaging indicates no evidence of subacute demyelinating lesions. Slice by slice comparison the FLAIR images is unchanged. A T2 FLAIR hyperintense lesion in the anterior body of the corpus callosum has not significantly changed since 03/13/2019. Additional T2 FLAIR hyperintense lesions in the supratentorial white matter are also unchanged. There is no associated enhancement or diffusion restriction. There is no evidence of intracranial mass, hemorrhage or acute infarction. There is no abnormal enhancement. The ventricles, sulci and cisterns are unremarkable in appearance. The flow voids of the major intracranial vessels appear intact. The bones and extracranial soft tissues are unremarkable. Procedure Note Donta Wilson MD - 09/17/2019 TECHNIQUE: MRI BRAIN (MS) WITH AND WITHOUT CONTRAST COMPARISON: 03/13/2019 FINDINGS: Diffusion-weighted imaging is without evidence of an acute intracranialprocess. Postcontrast imaging indicates no evidence of subacute demyelinatinglesions. Slice by slice comparison the FLAIR images is unchanged. A T2 FLAIR hyperintense lesion in the anterior body of the corpus callosumhas not significantly changed since 03/13/2019. Additional T2 FLAIRhyperintense lesions in the supratentorial white matter are also unchanged. There isno associated enhancement or diffusion restriction. There is no evidence of intracranial mass, hemorrhage or acuteinfarction. There is no abnormal enhancement. The ventricles, sulci and cisterns are unremarkable in appearance. The flow voids of the major intracranial vessels appear intact. The bones and extracranial soft tissues are unremarkable. IMPRESSION: There is no evidence of acute, subacute or interval development of new demyelinating foci since March,. ATTESTATION: I, Dr. Donta Wilson as teaching physician, have reviewedthe images for this case and if necessary edited the report originally createdby Dr. Ran Dawson. us Chace Henning MD IMG MR HEAD/NECK Final Resul t documented in this encounter Visit Diagnoses Diagnosis Multiple sclerosis Multiple sclerosis documented in this encounter Care Teams Lokie Driver Relationship Specialty Start Date End Date Samina Luna MD [address] [place] [address] PCP - General Internal Medicine 01/09/18 documented as of this encounter Additional Source Comments The information contained in this document represents components of the legal health record. It is not the complete legal health record.[facility]
--- OUTSIDE RECORDS SUMMARY | 2025-07-03 07:44 | XMS_ITS | Encounter Summary ---
Author Organization [facility] Address [address] [place] [address] Phone Care Team Providers Care Tag Stringer Name Role Phone Samina Luna MD Primary Care Provide r Encounter Details Date Type Department Care Team (Late st Contact Info) Description 09/16/2019 Procedure Pass [facility], [address] [facility], 2nd [place] [address] Social History Tobacco Use Types Packs/Day Years [...] Info) Description 07/22/2025 10:30 AM EDT Infusion [facility] [address] [place] [address] Chace Henning MD [address] [place] [phone] [email or web address] 09/03/2025 12:30 PM EST Office Visit Division of Immunologic, Inflammatory, and Infectious Neurological Disorders [address] [facility], 7th Floor, [address] [place] [address] Chace Henning MD [address] [facility] [address] [place] [phone] [email or web address] documented as of this encounter Visit Diagnoses Not on filedocumented in this encounter Care Teams Tag Stringer Relationship Specialty Start Date End Date Samina Luna MD [address] [place] [id number] PCP - General Internal Medicine 01/09/18 documented as of this encounter Additional Source Comments The information contained in this document represents components of the legal health record. It is not the complete legal health record.[facility]
--- OUTSIDE RECORDS SUMMARY | 2025-07-03 07:44 | XMS_ITS | Encounter Summary ---
Author Organization [facility] Address [address] [place] [address] Phone Care Team Providers Care Furnace Roaster Name Role Phone Samina Luna MD Primary Care Provide r Encounter Details Date Type Department Care Team (Late st Contact Info) Description 09/16/2019 Procedure Pass [facility], [address] [facility], 2nd [place] [address] Social History Tobacco Use Types Packs/Day Years [...] Info) Description 07/22/2025 10:30 AM EDT Infusion [facility] [address] [place] [address] Chace Henning MD [address] [place] [phone] [email or web address] 09/03/2025 12:30 PM EST Office Visit Division of Immunologic, Inflammatory, and Infectious Neurological Disorders [address] [facility], 7th [address], [address] [place] [address] Chace Henning MD [address] [facility] [address] [place] [phone] [email or web address] documented as of this encounter Visit Diagnoses Not on filedocumented in this encounter Care Teams Furnace Roaster Relationship Specialty Start Date End Date Samina Luna MD [address] [place] [phone] PCP - General Internal Medicine 01/09/18 documented as of this encounter Additional Source Comments The information contained in this document represents components of the legal health record. It is not the complete legal health record.[facility]
--- OUTSIDE RECORDS SUMMARY | 2025-07-03 07:44 | XMS_ITS | Clinical Summary ---
Author Organization [facility] Address [address] [facility] [address] [address] [place] [address] Phone Care Team Providers Care Net C Developer Name Role Phone Samina Luna MD Primary Care Provide r Allergies Active Allergy Reactions Criticality Noted Date Comments Sulfamethoxazole-Trimethoprim Hives 2017 Covid-19 Vaccine, Mrna, [id number]-0 [id number], Lnp-S (Moderna) 09/04/2023 GB Syndrome Sulfa (Sulfonamide Antibiotics) Hives 06/03 Medications baclofen (LIORESAL) 10 MG tablet TAKE 1 TABLET BY MOUTH TWICE DAILY 180 tablet 1 Active Additional Information Patient not taking.Reported on 11/23/2024 gabapentin (NEURONTIN) 100 MG capsuleIndicat ions:Multiple sclerosis Take 3 capsules (300 mg total) by mouth 3 (three) times a day. 270 capsule 4 Active Additional Information Patient not taking.Reported on 01/11/2025 clonazePAM (KLONOPIN) 0.5 MG tablet Take 1 tablet (0.5 mg total) by mouth nightly at bedtime as needed for anxiety. 30 tablet 3 5 Active traZODone (DESYREL) 50 MG tablet Take 1 tablet (50 mg total) by mouth nightly at bedtime as needed (severe insomnia). 60 tablet 3 5 Active DULoxetine (CYMBALTA) 30 MG capsuleIndicat ions:Multiple sclerosis Take 1 capsule (30 mg total) by mouth daily. 30 capsule 11 5 Active DULoxetine (CYMBALTA) 30 MG capsule Take 1 capsule (30 mg total) by mouth daily. 30 capsule 5 5 06/06/20 25 Discontin ued(Reord er) Active Problems Problem Noted Date Diagnosed Date Back pain 12/16/2020 Chronic daily headache 07/13/2018 Insomnia 07/13/2018 Multiple sclerosis 07/13/2018 Immunizations Immunization Administration Dates Next Due COVID-19 (Pre-07/25) Moderna Vaccine, mRNA, PF 0 12/01/2020,10/30/2020 Family History Medical History Relation Comments Hypertension Father Hypertension Mother Thyroid disease Sister Relation Status Comments Father Alive Mother Alive Sister Alive Social History Tobacco Use Types Packs/Day Years Used Date Smoking Tobacco: Some Days Cigarettes Smokeless Tobacco: Current Tobacco Cessation:Ready to Q uit: Not Asked Child or Family Care Answer Date Record ed Do you have problems with on e of the following making it difficult for you to work, study, or receive health care? No 09/03/2024 Education Answer Date Recorded Are you interested in help w ith more adult education (for example, completing high school, GED, job training, learning the [place] language, technical skills, or developing parenting skills)? [...] Orientation Straight 12/20/2019 11 :03 PM EDT Last Filed Vital Signs Vital Sign Reading Time Taken Comments Blood Pressure 125/70 01/17/2025 8:11 AM EDT Pulse 68 01/17/2025 8:11 AM EDT Temperature 36.2 C (97.2 F) 01/17/2025 8:11 AM EDT Respiratory Rate 18 01/17/2025 8:11 AM EDT Oxygen Saturation 99% 01/17/2025 8:11 AM EDT Inhaled Oxygen Concentration - - Weight 80.3 kg (177 lb) 01/17/2025 8:11 AM EDT Height 179 cm (5' 10.47 ) 01/11/2025 2:10 PM EDT Body Mass Index 25.06 01/11/2025 2:10 PM EDT Plan of Treatment Upcoming Encounters Date Type Department Care Team (Late st Contact Info) Description 07/22/2025 10:30 AM EDT Infusion [address] [place] [address] Chace Henning MD [address] [place] [address] [address] [place] [phone] [email or web address] 09/03/2025 12:30 PM EST Office Visit Division of Immunologic, Inflammatory, and Infectious Neurological Disorders [address] [place] [address], 7[address] Floor, [address] [place] [address] Chace Henning MD [address] [place] [address] [address] [place] [phone] [email or web address] Health Maintenance Due Date Last Done Comments LIPID PANEL 1969 DEPRESSION SCREENING 1981 SMOKING Hx and SMOKELESS TOBACCO SCREENING 1982 PNEUMOCOCCAL VACCINES (50+ years) (1 of 2 - PCV) 02/04/1988 COLOGUARD 2014 COLONOSCOPY 2014 COLORECTAL CANCER SCREENING 2014 FIT TEST 2014 FOBT 2014 SIGMOIDOSCOPY 2014 VIRTUAL COLONOSCOPY 2014 ZOSTER VACCINES (1 of 2) 2019 INFLUENZA VACCINE (#1) 2025 2, 06/24/2020, 06/24/2020, Additional history exists SCREENING FOR DIABETES 01/18/2028 01/17/2025 Adult Td,Tdap Booster 04/30/2031 04/30/2021 HEPATITIS C SCREENING Completed 12/17/2020 HIV ONE-TIME SCREENING (18-65 YEARS) Completed 10/12/2022 HEPATITIS A VACCINES Aged Out No long er eligible based on patient's age to complete this topic HIB VACCINES Aged Out No longer eligi ble based on patient's age to complete this topic MENINGOCOCCAL VACCINES (ACWY) Aged Out No longer eligible based on patient's age to complete this topic MENINGOCOCCAL VACCINES (B) Aged Out N o longer eligible based on patient's age to complete this topic Medical Devices Implanted Type Area [employer] Device Identifier Shelf Expiration Date Model / Serial / Lot Cspine Hardware Procedures Procedure Name Priority Date/Time Associated Diagnosis Comments HEPATITIS C ANTIBODY, QUALITATIVE Routine 12/17/2020 5:13 AM EDT from Last 3 Months or Most Recently Relevant to Health Maintenance Results * Hepatitis C antibody, qualitative (12/17/2020 5:13 AM EDT) HCV ANTIBODY Negative Negative [facility] Comment:Antibodies to HCV no t detected. Does not exclude the possibility of exposure to HCV. Blood 12/17/2020 5:13 AM EDT 12/17/2020 7:01 AM EDT us Randy Valdez MD, MPH LAB BLOOD ORDERABLES Final Result [address] [id number] from Last 3 Months or Most Recently Relevant to Health Maintenance Insurance [facility] PPO PHCS Advance Directives For more information, please contact: [phone] (9AM - 5PM [facility], Tuesday-Tuesday) * Full Code (Latest Code Status on File) Date Activated Date Inactivated Comments 12/17/2020 7:10 PM Question Answer Comments Code Status Confirmed With: Patient Code Status Communicated To: Inpatient Attending Care Teams Net C Developer Relationship Specialty Start Date End Date Samina Luna MD [address] [place] [id number] PCP - General Internal Medicine 01/09/18 Additional Source Comments The information contained in this document represents components of the legal health record. It is not the complete legal health record.[facility]
--- OUTSIDE RECORDS SUMMARY | 2025-07-03 07:44 | XMS_ITS | Encounter Summary ---
Author Organization [facility] Address [address] [place] [address] Phone Care Team Providers Care Car Repairer Name Role Phone Samina Luna MD Primary Care Provide r Encounter Details Date Type Department Care Team (Late st Contact Info) Description 09/12/2018 Procedure [place] [facility] [place] [address] [facility]nd [place] [address] Social History Tobacco Use Types Packs/Day Years [...] Info) Description 07/22/2025 10:30 AM EDT Infusion [facility] [address] [place] [address] Chace Henning MD [address] [place] [phone] [email or web address] 09/03/2025 12:30 PM EST Office Visit Division of Immunologic, Inflammatory, and Infectious Neurological Disorders [address] [facility] 7th [address], [address] [place] [address] Chace Henning MD [address] [facility] [address] [place] [phone] [email or web address] documented as of this encounter Visit Diagnoses Not on filedocumented in this encounter Care Teams Car Repairer Relationship Specialty Start Date End Date Samina Luna MD [address] [place] [phone] PCP - General Internal Medicine 01/09/18 documented as of this encounter Additional Source Comments The information contained in this document represents components of the legal health record. It is not the complete legal health record.[facility]
== END 2025-07-03 08:42 | disposition home or self-care (01) ==
LOC: HO.HSMS 07:38
PROVIDERS: Visit Provider Psychiatry & Neurology Neurology
DX: G47.33 Obstructive sleep apnea (adult) (pediatric) (principal); G47.62 Sleep related leg cramps; G25.81 Restless legs syndrome; M47.816 Spondylosis without myelopathy or radiculopathy, lumbar region; G35.D Multiple sclerosis, unspecified
CPT/HCPCS: 99214; G2211